=== PATIENT | female | born 1990 | race Caucasian/White ===

== ENCOUNTER 2024-10-12 17:09 | Emergency (ER) | payer BC, SELFPAY ==
--- OUTSIDE RECORDS SUMMARY | 2022-11-05 13:10 | XMS_ITS | Encounter Summary ---
Author Organization [facility] Address [address] [place] [address] Care Team Providers Care Assembler Rubber Footwear Name Role Phone Rodolfo Plunkett MD Primary Care Provider [phone] Encounter Details Date Type Department Care Team (Late st Contact Info) Description 11/05/2022 1:10 PM EDT Hospital Encounter [facility] - [facility] [address] [place] [phone] Social History Tobacco Use Types Packs/Day Years [...] often do you attend chur ch or denominational services? Never 09/24/2023 Do you belong to any clubs o r organizations such as denominational groups, unions, fraternal or athletic groups, or [...] things needed for daily living? Yes 2024 [place] Depression Scale Answer Date Recorded [place] Depression Scale Total 16 08/01/2023 The thought [...] were you homeless or living in a longterm (including now)? Patient unable to answer 2024 [...] declined 08/13/2024 How often do you attend denominational or denominational serv ices? Patient declined 08/13/2024 Do you belong to any clubs o r organizations such as denominational groups, unions, fraternal or athletic groups, or [...] housing, medical care, and heating? Hard 08/13/2024 [facility] [place] of Occupat ional Health - Occupational Stress [...] any time in the past 12 m [facility], were you homeless or living in a longterm (including now)? No 08/13/2024 [facility] Utilities Answer Date Recorded In the past 12 months has [facility] electric, gas, oil, or water company [...] Description 11/03/2024 12:25 PM EDT [facility] [address] [place] [address] 11/03/2024 12:30 PM EDT Appointment [facility] - Ultrasound [address] [place] [address] 12/14/2024 12:55 PM EDT [facility] [address] [place] [address] 12/14/2024 1:00 PM EDT [facility]ment [facility] - Ultrasound [address] [place] [address] documented as of this encounter Procedures Procedure Name Priority Date/Time Associated Diagnosis Comments 15 [place] IO-PERIAPICAL 1ST RADIOGRAPHC IMAGE Routine 11/05/2022 1:15 PM EDT Dental abscess documented in this encounter Results * 15 [place] IO-PERIAPICAL 1ST RADIOGRAPHC IMAGE (11/05/2022 1:15 PM [...] documented as of this encounter Care Teams Assembler Rubber Footwear Relationship Specialty Start Date End Date Rodolfo Plunkett MD [address] [facility] [place] [phone] PCP - General Family Medicine 08/24/21 06/26/24 documented as of this encounter
--- OUTSIDE RECORDS SUMMARY | 2024-01-15 13:36 | XMS_ITS | Encounter Summary ---
Author Organization [facility] Address [address] [place] [address] Care Team Providers Care Doctor Of Osteopathy Name Role Phone Rodolfo Plunkett MD Primary Care Provider [phone] Encounter Details Date Type Department Care Team (Latest Contact Info) Description 01/15/2024 12:36 PM [facility] Hospital Encounter [facility] Imaging Services - [place] [facility] - XRay [address] [facility] [place] [address] Chest congestion; Other chest pain; Fever, unspecified [...] often do you attend chur ch or cheondoism services? Never 09/24/2023 Do you belong to any clubs o r organizations such as christian groups, unions, fraternal or athletic groups, or [...] things needed for daily living? Yes 2024 [place] Depression Scale Answer Date Recorded [place] Depression Scale Total 16 08/01/2023 The thought [...] were you homeless or living in a intermediate (including now)? Patient unable to answer 2024 [...] declined 08/13/2024 How often do you attend christian or cheondoism serv ices? Patient declined 08/13/2024 Do you belong to any clubs o r organizations such as christian groups, unions, fraternal or athletic groups, or [...] housing, medical care, and heating? Hard 08/13/2024 [facility] Occupat ional Health - Occupational Stress [...] were you homeless or living in a intermediate (including now)? No 08/13/2024 [facility] Utilities Answer Date Recorded In the [...] Description 11/03/2024 12:25 PM EDT Office Visit [facility] [address] [place] [address] 11/03/2024 12:30 PM EDT Appointment [facility] - Ultrasound [address] [place] [address] 12/14/2024 12:55 PM EDT Office Visit [facility] [address] [place] [address] 12/14/2024 1:00 PM EDT [facility] - Ultrasound [address] [place] [address] documented as of this encounter Procedures Procedure [...] documented as of this encounter Care Teams Doctor Of Osteopathy Relationship Specialty Start Date End Date Rodolfo Plunkett MD [address] [facility] [place] [phone] PCP - General Family Medicine 08/24/21 06/26/24 documented as of this encounter
[2024-10-12 17:20] VITALS: BP 107/80; PULSE 80; O2SAT 98
[2024-10-12 17:29] VITALS: BP 107/56; PULSE 79; RESP 16; TEMP 36.6; O2SAT 97; BMI 17.4
--- OUTSIDE RECORDS SUMMARY | 2024-10-12 18:25 | XMS_ITS | Clinical Summary ---
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 Merged With [facility] [employer] [facility] - 07/30/2024 12:34 PM EDT Specimen was tested by the Aptima BV and CV/TV Assays which detect or target RNA components associated with bacterial vaginosis (including Lactobacillus species - L. gasseri, L.crispatus, and L. jensenii, Gardnerella vaginalis, and Atopobium vaginae), Nicci species infections (including C. albicans, C. tropicalis, C. parapsilosis, and C. dubliniensis in addition to Nicci glabrata), or Trichomonas vaginalis infections. These assays have not been evaluated for patients under 14 years of age. False negative results may occur due to specimen adequacy, cross-reactivity with other Nicci/Lactobacillus species, competitive interference, or target levels below the assay limit of detection (LoD). A positive result does not necessarily indicate the presence of viable organisms, and it is not intended to be used to determine therapeutic failure or success. [facility] MICROBIOLOGY - GENERAL ORD ERABLES Final Result [facility] - [address] [address], * POCT Urinalysis Automated (07/29/2024 2:33 PM EDT) Pathologist [facility] Glucose Urine Automated, POC Negative Negative, 500 mg/dL mg/dL Ketones Urine Automated, POC Negative Negative, 0-Trace Specific [place] Urine Automated, POC 1.020 1.010, 1.015, 1.020, 1.025 Blood, Urine, POC Negative Negative Urine pH, POC 7.5 5.0, 5.5, 6.0, 6.5, 7.0, 7.5, 8.0 Protein Urine Automated, POC Negative Negative Leukocytes, Urine, POC Negative Negative Nitrite, Urine, POC Negative Negative Source Clean Catch [employer]-Stream Lot # [id number] Lot Expiration Date Urine 07/29/2024 2:33 PM EDT [facility] POINT OF CARE TEST ORDERABLES Final Result * HIV Ag/Ab Progressive - Once (07/31/2023 12:07 PM EDT) [facility] HIV Antigen/Antibody Nonreactive Nonreactive 08/01/2023 7:21 AM EDT [facility] Comment: HIV-1 antigen and HIV-1/HIV-2 antibodies were not detected. There is no laboratory evidence of an HIV infection. PLEASE NOTE: This information has been disclosed to you from records whose confidentiality may be protected by state law. If your state requires such protection, then the state law prohibits you from making any further disclosure of the information without the specific written consent of the person to whom it pertains, or as otherwise permitted by law. A general authorization for the release of medical or other information is NOT sufficient for this purpose. The performance of this assay has not been clinically validated in patients less than 2 years old. Blood Venous blood specimen / Unknown Venipuncture / Unknown 07/31/2023 12:07 PM EDT 07/31/2023 12:24 PM EDT Denise Smith MD LAB BLOOD ORDERABLES Fin al Result Performing Organization Address [facility] Co de Phone Number [facility] [address] [place] [id number] * Hepatitis C Antibody w/rfl Quant RNA, PCR w/rfl Genotype - STAT (07/28/2023 8:26 PM EDT) Pathologist [facility] Hepatitis C Ab Nonreactive Nonreactive 07/30/2023 5:03 AM EDT [facility] Comment: Hepatitis C Antibody was not detected. Patient is presumed not to be infected with Hepatitis C Virus. Blood Venous blood specimen / Unknown Venipuncture / Unknown 07/28/2023 8:26 PM EDT 07/28/2023 8:41 PM EDT Rafaela Bergman DO LAB BLOOD ORDERABLES Final R esult Performing Organization Address [facility] de Phone Number [facility] [address] [place] [phone] * CIGAR BANDER HAND CYTOLOGY REPORT (06/08/2015 9:05 AM EDT) Pathologist [facility] [employer] P8 Developer Cytology Report Clinical Information Submitted As: Thin prep vial with preservative LMP Date: 02/12/2015 CIGAR BANDER HAND History/Treatment/S ymptoms: No prior abnormal findings [id number] Testing Requested Pap, Screen, with HPV Specimen Source Cervix/endocervix Specimen Adequacy Satisfactory for evaluation. Transformation zone component absent. Diagnosis NEGATIVE for Intraepithelial Lesion or Malignancy. Fungal organisms morphologically consistent with Nicci. Geology Teacher: [facility] SHANAE Ambrose(ASCP) (Electronic Signature), Verified: 06/15/2015 Note In the absence of technical problems, liquid-based specimens are routinely analyzed with the automated assistance of the ThinPrep Cold Rolling Coordinator System followed by microscopic evaluation by a Geology Teacher and/or Pathologist. The pap test is only a screening tool for the detection of cervical cancer and its precursors. This test is subject to false negatives and false positives, therefore periodic follow-up testing is recommended. [facility] 06/08/2015 9:05 AM EDT us Georgi Hackett MD LAB HISTORICAL ORDE RS Final Result [facility] [address] [place] [address], [place] from Last 3 Months or Most Recently Relevant to Health Maintenance Additional Health Concerns Active Problems Noted Date Diagnosed Date Outpatient Care Plan Problem 08/13/2024 Insurance [facility] MED[facility]ID [employer] MED[employer]ID [facility] [employer] Advance Directives * Full Code (Latest Code Status on File) Date Activated Date Inactivated Comments 04/27/2024 10:31 PM 04/29/2024 2:16 PM * Full Code Date Activated Date Inactivated Comments 07/31/2023 11:46 AM 08/01/2023 1:36 PM * Full Code Date Activated Date Inactivated Comments 10/25/2022 3:24 PM 11/09/2022 5:42 PM * Full Code Date Activated Date Inactivated Comments 04/24/2020 6:10 PM 04/27/2020 5:03 PM * Full Code Date Activated Date Inactivated Comments 04/22/2020 2:28 PM 04/24/2020 5:26 PM Care Teams Therapist Speech Relationship Specialty Start Date End Date Unknown PCP - General 07/29/24
--- OUTSIDE RECORDS SUMMARY | 2024-10-12 18:25 | XMS_ITS | Clinical Summary ---
Author Organization [facility] Address [address] [place] [address] Care Team Providers Care Dry House Operator Name Role Phone No Pcp, Family Dr Primary Care Provider Unavaila ble Allergies Active Allergy Reactions Criticality Noted Date Comments Bee Venom Protein (Honey Bee) Hives Medium 12/03/2018 Penicillin G Anaphylaxis High 11/10/2018 Penicillins Anaphylaxis High 12/11/2018 Pollen Extracts Other (See Comments) Low 12/03/2018 Nasal congestion Medications gabapentin (Neurontin) 100 MG capsule Take 100 mg by mouth at bedtime. Active FLUoxetine (PROzac) 20 MG capsule Take 60 mg by mouth daily. Active ziprasidone (Geodon) 20 MG capsule Take 20 mg by mouth twice a day with breakfast and dinner. Active busPIRone (Buspar) 15 MG tablet Take 15 mg by mouth twice a day. Active traZODone (DesyreL) 150 MG tablet Take 150 mg by mouth at bedtime. Active benztropine (Cogentin) 0.5 MG tablet Take 0.5 mg by mouth twice a day. Active doxycycline 100 MG capsule Take 1 capsule (100 mg total) by mouth twice a day. 20 capsule 2 Active naproxen (Naprosyn) 500 MG tablet Take 1 tablet (500 mg total) by mouth twice a day with breakfast and dinner. 10 tablet 3 Active dicyclomine (BentyL) 20 mg tablet Take 1 tablet (20 mg total) by mouth twice a day. 20 tablet 3 Active famotidine (Pepcid) 20 MG tablet Take 1 tablet (20 mg total) by mouth twice a day. 30 tablet 3 Active albuteroL 90 mcg/actuation inhaler Inhale 2 puffs every 4 hours as needed for wheezing. 1 each 4 Active acetaminophen (TylenoL) 500 MG tablet Take 1 tablet (500 mg total) by mouth every 6 hours as needed for mild pain, moderate pain or fever (>/= 38.3 C or 101 F). 30 tablet 4 Active Social History Tobacco Use Types Packs/Day Years Used Date Smoking Tobacco: Every Day Cigarettes Passive Smoke Exposure: Never Smokeless Tobacco: Never Tobacco Cessation:Ready to Q uit: Not Asked; Counseling Given: Not Answered Alcohol Use Standard Drinks/Week Comments Yes 0 (1 standard drink = 0.6 oz pure alcohol) as many as I can get my hands on AUDIT-C Answer Date Recorded Frequency of Alcohol Consumption Never 03/10/2020 Average Number of Drinks Not on file 021 Frequency of Binge Drinking Not on file 02/19 Comments Unknown Sex and Gender Information Value Date Recorded Sex Assigned at Not on file Legal Sex Female 5:13 PM EDT Gender Identity Not on file Sexual Orientation Not on file Last Filed Vital Signs Vital Sign Reading Time Taken Comments Blood Pressure 110/77 03/30/2023 3:54 PM EST Pulse 85 03/30/2023 3:54 PM EST Temperature 36.6 C (97.8 F) 03/30/2023 3:54 PM EST Respiratory Rate 20 03/30/2023 3:54 PM EST Oxygen Saturation 98% 03/30/2023 3:54 PM EST Inhaled Oxygen Concentration - - Weight 54.4 kg (120 lb) 03/30/2023 3:54 PM EST P t stated Height 170.2 cm (5' 7 ) 03/30/2023 3:54 PM EST Body Mass Index 18.79 03/30/2023 3:54 PM EST Plan of Treatment Health Maintenance Due Date Last Done Comments Pap Smear 1990 Annual Depression Screening 2002 Pneumococcal Vaccine (0-64 y ears) (2 of 2 - PCV) 11/11/2016 11/12/2015, 11/18/2009 Influenza Vaccine (#1) 2024 11/12/2015 Tetanus/Pertussis Vaccines ( 8 - Td or Tdap) 04/27/2034 04/27/2024, 09/27/2022, 11/14/2015, Additional history exists HIV Screening 15-65 Completed 07/11/2022, 2 Procedures Procedure Name Priority Date/Time Associated Diagnosis Comments HIV 1/2 ANTIGEN/ANTIBODY,FOU RTH GENERATION W/RFL STAT 07/11/2022 11:29 PM EDT from Last 3 Months or Most Recently Relevant to Health Maintenance Results * HIV 1/2 Antigen/Antibody,Fourth Generation W/Rfl (07/11/2022 11:29 PM EDT) HIV AG/AB, 4TH GEN Nonreactive Nonreactive 07/16/2022 2:02 PM EDT [facility] Comment: HIV-1 antigen and HIV-1/HIV-2 antibodies were not detected. There is no laboratory evidence of HIV infection. PLEASE NOTE This information has been disclosed to you [...] in patients less than 2 years old. For additional information, please refer to http://education.[employer]/faq/CMS193 Blood Blood specimen / Unknown Line / Unknown 07/11/2022 11:29 PM EDT 07/11/2022 11:29 PM EDT Narrative [facility] - 07/16/2022 2:02 PM EDT Performing Organization Information: Site ID: [id number] Name: [facility] [employer] [place] Address: [address], [place] Director: Antonio Tiwari MD PhD us Maris [facility] LAB BLOOD ORDERABLES F inal Result [employer] [place] from Last 3 Months or Most Recently Relevant to Health Maintenance Insurance LITZY LAGOS [id number] [employer] MEDICA[employer] Care Teams Dry House Operator Relationship Specialty Start Date End Date No Pcp, Family, [address] (Not a Real Address) [place] [id number] PCP - General 09/28/21
--- OUTSIDE RECORDS SUMMARY | 2024-10-12 18:25 | XMS_ITS | Continuity of Care Document ---
Author Organization [facility] Address [address] [place] [address] Phone [phone] Care Team Providers Care Agricultural Science Professor Name Role Phone NIKKI EVANS D.O. Care Team Information Strap Cutting Machine Operator Unavailable No PCP, No Referring Primary Care Physician Unav ailable Problems Active Problems Provider Date Anemia Vikas Gordon M.D. Onset: 06/30/2019 Anxiety Vikas Gordon M.D. Onset: 06/30/2019 Asthma Vikas Gordon M.D. Onset: 06/30/2019 Depressive disorder Vikas Gordon M.D. 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 ETOH Use Currently consumes alcohol Tobacco Use Start: Unknown Patient is a cur rent smoker, smokes every day Recreational Drug Use Never Used Drugs Allergies and adverse reactions Active Allergies Criticality Reaction Severity Comments Date Penicillin Unable to assess criticality Hives, swelling 06/30/2019 Bee Sting Unable to assess criticality Hives 06/30/2019 Seasonal Unable to assess criticality Nasal congestion, itchy eyes 06/30/2019 Medications Active Medications SIG Qnty Indications Ordering Provider Date Mobic7.5mg Tablets one tablet by mouth with food one time a day 30tabs Vikas Gordon M.D. 06/30/2019 Tizanidine HCL2mg Tablets 1 tablet by mouth up to 3 times a day as needed for muscle spasm 30tabs Vikas Gordon M.D. 06/30/2019 Hydroxyzine [id number] Capsules Take 1 Capsule (25 MG Total) By Mouth 3 (Three) Times A Day Unknown [id number] Capsules Take 1 Capsule By Mouth Three Times A Day Unknown Functional Status Functional Condition Comment Date Status None Active
--- OUTSIDE RECORDS SUMMARY | 2024-10-12 18:25 | XMS_ITS ---
Author Organization [employer] Address [address] [place] [address] Care Team Providers Care Junior Technical Writer Name Role Phone Unknown Primary Care Provider Unavailabl e Social Work Status:Enrolled (Active) Start date:08/13/2024 Enrollment date:08/13/2024 Enrollment reason:Identified through [employer] [facility] referral Related social drivers of health:Food Insecurity, Transportation Needs Overview Assists patients with obtaining needed community resources, services and equipment. Advocates for the patient's self determination and appropriate levels of care. Case Team Name Relationship Phone Sharmin Watson(Responsible Staff) Continued Care and Services Coordination
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
[2024-10-12 18:29] VITALS: BP 119/64; PULSE 71; RESP 20; TEMP 36.9; O2SAT 98
--- NOTE | 2024-10-12 18:30 | PC.NURSE ---
Patient awaiting ED provider sign up and evaluation. Patient reports that they go to [facility] in [place], [place]. Patient reports that she's 6 months , and takes Subutex 8mg. However, patient hasn't taken her Subutex for 1 week and is in ED for withdrawal today. Patient is in behavioral control at this time. Spoke with Dr. Valles regarding receiving Subutex dosing now. Labs ordered and being collected at this time. Provider wishes to evaluate the patient & obtain labs prior to medicating. Patient aware of plan. Care ongoing by this RN. Robles (air bag builder) at bedside collecting labs at this time.
[2024-10-12 18:47] LABS: Hematocrit 30.8 % (37.0-47.0); Hemoglobin 10.5 g/dl (12.0-16.0); Imm Gran Abs Auto 0.05 X10*3/uL (0.00-0.03); Imm Gran Pct Auto 0.6 % (0.0-0.4); Lymphocytes Absolute Auto 2.8 X10*3/uL (1.2-4.9); MANUAL DIFF FLAG NO; Mean Corpuscular HGB Conc 34.1 g/dl (31.0-35.0); Mean Corpuscular Hemoglobin 28.8 pg (27.0-33.0); Mean Corpuscular Volume 84.4 fL (80.0-98.0); NRBC Abs Auto 0.000 X10*3/uL (0.0-0.012); NRBC Pct Auto 0.0 /100WBC (0.0-0.2); Platelet Count 291 X10*3/uL (160-400); Red Blood Count 3.65 X10*6/uL (4.20-5.50); White Blood Count 9.0 X10*3/uL (4.8-10.8)
[2024-10-12 19:08] LABS: Alanine Aminotransferase 7 U/L (0-31); Albumin Level 3.7 g/dL (3.5-5.0); Alkaline Phosphatase 77 U/L (39-117); Anion Gap 12 (12-20); Aspartate Amino Transferase 13 U/L (5-31); Blood Urea Nitrogen 9 mg/dL (9-16); Calcium 8.4 mg/dL (8.4-10.2); Carbon Dioxide 21 mmol/L (22-29); Chloride 107 mmol/L (96-108); Creatinine Clr Calc Pharmacy 109.1; Estimated Glomerular Filt Rate > 60; Lipase 12 U/L (8-78); Magnesium 2.2 mg/dL (1.6-2.6); Potassium 4.0 mmol/L (3.3-5.1); Sodium 136 mmol/L (135-145); Total Protein 6.6 g/dL (6.5-8.0)
--- NOTE | 2024-10-12 19:40 | PC.NURSE ---
pt requesting Tylenol at this time and questioning if her labs have returned, this RN informed the pt that her lab results have returned and pending a provider to look over them, pt adamant on receiving her Subutex if she cannot her Tylenol, pt educated that we must wait for provider to see her in order to receive medication
--- NOTE | 2024-10-12 20:10 | PC.NURSE ---
at this time this RN reiterated to the pt that we are waiting for a provider to go over her lab work in order to place new orders, pt appeared more relaxed and requested gingerale, no apparent distress noted at this time
--- NOTE | 2024-10-12 21:11 | ED_ITS ---
HPI - General Adult General Chief complaint: General Medical Stated complaint: opiate w/d sx x1 wk 6 months Time Seen by Provider: 10/12/24 21:11 Source: patient Mode of arrival: ambulatory Limitations: no limitations History of Present Illness ED Provider: Dr. Lisa Harrison HPI narrative: 34-year-old female currently approximately 6 months with a history of polysubstance use, opiate use disorder on Subutex presenting with opiate withdrawal symptoms. Admits she has not had any Subutex in the last 7 days. Usually gets treated in [place], [place]. Is up here with her partner who has a job in construction in [place] right now. Has also used morphine, last dose of that was several weeks ago though. She denies other opiate use in the meantime. She has used cocaine and marijuana. Admits that she had a miscarriage at 5 months due to drug use and ?STDs?. She describes her withdrawal symptoms as fatigue, generalized body pains, diarrhea, anxiety and depression. Denies vaginal bleeding or discharge, dysuria or hematuria, nausea or vomiting. Describes normal movement. Related Data Allergies Allergy/AdvReac Type Severity Reaction Status Date / Time bee pollen (bee stings) Allergy Unknown Verified 10/12/24 17:36 Penicillins (PCN) Allergy Unknown Verified 10/12/24 17:36 Review of Systems 2 Review of Systems: As per HPI, full review of systems performed and negative but for the above mentioned pertinent positives and negatives. [facility] Social History Social History Advance Directives: No Advance Directives Information Provided: Yes Physical Exam ED Exam Exam: GENERAL: Unkempt, no acute distress. SKIN: Normal skin color for ethnicity, warm, dry, no rashes noted. HEENT: Normocephalic, atraumatic, no stridor, posterior oropharynx nonerythematous, dentition intact, EOMI. NECK: Soft, supple, full ROM, midline structures nontender, no step-offs, no deformities, no lymphadenopathy. CHEST: Heart regular rate and rhythm, no murmurs, symmetric chest rise and fall. PULMONARY: Clear to auscultation bilaterally, no labored breathing, no wheezes/rhales/ rhonchi. ABDOMINAL: Soft, gravid, nontender, positive bowel sounds in all quadrants. : Deferred. MUSCULOSKELETAL: Normal tone, full range of motion, no deformities, no peripheral edema. NEURO: Alert and oriented x3, CN II through XII intact, equal strength and sensation bilateral upper and lower extremities, no focal neurologic deficits. PSYCHIATRIC: Flat affect, poor eye contact, withdrawn Vital Signs: Vital Signs - 24 hr 10/12/24 17:29 10/12/24 18:29 10/12/24 22:03 Temperature 98 F 98.4 F 97.9 F Pulse Rate 79 71 66 Respiratory Rate 16 20 20 Blood Pressure 107/56 L 119/64 114/54 L Pulse Oximetry 97 98 100 Oxygen Delivery Method Room Air Room Air BMI result Body Mass Index 17.4 Medications Administered Discontinued Medications Generic Name Dose Route Start Last Admin Trade Name Freq PRN Reason Stop Dose Admin Acetaminophen 975 mg 10/12/24 21:49 10/12/24 21:58 Acetaminophen 325 Mg Tablet PO 10/12/24 21:50 975 mg ONCE ONE Administration Buprenorphine HCl 4 mg 10/12/24 22:31 10/12/24 22:59 Buprenorphine Hcl 2 Mg Tab.Subl SUBLINGUAL 10/12/24 22:32 4 mg ONCE ONE Administration Naloxone HCl 8 mg 10/12/24 22:32 10/12/24 22:47 Naloxone Hcl Nasal Take Home 4 Mg [place] NOSTRILALT 10/12/24 22:33 Not Given ONCE ONE Medical Decision Making Medical Decision Making MDM Narrative: 34-year-old female currently 6 months presenting with request for medication assisted therapy for opioid use disorder. Differential diagnosis includes: Opiate dependence, polysubstance use, complications of , viral syndrome, infectious process, housing and security, trafficking, among others. Bedside ultrasound shows single IUP with heart tones in the 140s, normal movement. I have provided her with a dose of Subutex here in the emergency department. Discussed importance of follow-up at [facility] to have continued dosing. Patient traveled from [facility] to [place] with her partner who is working here. She has no care in the area. I have discussed the case with OBGYN at [place] at [facility] and they will arrange follow-up for care visit. Differential Diagnosis Differential Diagnoses: The differential diagnosis associated with the presentation includes (as above) Admission/Observation Consideration of admission/observation: Escalation of care including admission/observation considered Consult Healthcare Provider Management of the patient was discussed with: Weed Inspector (WANDA at [place] (high risk )) Lab Data MDM Lab Attestation statement: I reviewed the patient's lab results. 10/12/24 18:42 10/12/24 18:42 Labs: Lab Results 10/12/24 10/12/24 Range/Units 18:42 22:03 WBC 9.0 (4.8-10.8) X10*3/uL RBC 3.65 L (4.20-5.50) X10*6/uL Hgb 10.5 L (12.0-16.0) g/dl Hct 30.8 L (37.0-47.0) % MCV 84.4 (80.0-98.0) fL MCH 28.8 (27.0-33.0) pg MCHC 34.1 (31.0-35.0) g/dl RDW 14.6 (11.0-16.0) % Plt Count 291 (160-400) X10*3/uL MPV 9.1 L (9.4-12.3) fL Immature Gran % (Auto) 0.6 H (0.0-0.4) % Neut % (Auto) 62.5 (45-73) % Lymph % (Auto) 30.9 (20-40) % [place] % (Auto) 4.4 (2-11) % Eos % (Auto) 1.0 (0-4) % Baso % (Auto) 0.6 (0-2) % Lymph # (Auto) 2.8 (1.2-4.9) X10*3/uL [place] # (Auto) 0.4 (0.1-1.2) X10*3/uL Eos # (Auto) 0.1 (0.0-0.4) X10*3/uL Baso # (Auto) 0.1 (0.0-0.2) X10*3/uL Abs Immat Gran (auto) 0.05 H (0.00-0.03) X10*3/uL Absolute Neuts (auto) 5.7 (2.0-8.3) x10*3/uL Absolute Nucleated RBC 0.000 (0.0-0.012) X10*3/uL Nucleated RBC % (auto) 0.0 (0.0-0.2) /100WBC Sodium 136 (135-145) mmol/L Potassium 4.0 (3.3-5.1) mmol/L Chloride 107 (96-108) mmol/L Carbon Dioxide 21 L (22-29) mmol/L Anion Gap 12 (12-20) BUN 9 (9-16) mg/dL Creatinine 0.65 (0.5-1.4) mg/dL Estim Creat Clear Calc 109.1 Estimated GFR > 60 Random Glucose 76 (60-115) mg/dL Calcium 8.4 (8.4-10.2) mg/dL Magnesium 2.2 (1.6-2.6) mg/dL Total Bilirubin 0.3 (0.0-1.0) mg/dL Direct Bilirubin 0.1 (0.0-0.5) mg/dL AST 13 (5-31) U/L ALT 7 (0-31) U/L Alkaline Phosphatase 77 (39-117) U/L Total Protein 6.6 (6.5-8.0) g/dL Albumin 3.7 (3.5-5.0) g/dL Lipase 12 (8-78) U/L Beta HCG, Quant 48813 mIU/mL Urine Opiates Screen Not Detected (Not Detect) Ur Buprenorphine Scrn Not Detected (Not Detect) ng/mL Ur Oxycodone Screen Not Detected (Not Detect) ng/mL Urine Methadone Screen Not Detected (Not Detect) ng/mL Urine Fentanyl Screen Not Detected (Not Detect) Ur Barbiturates Screen Not Detected (Not Detect) Ur Phencyclidine Scrn Not Detected (Not Detect) Ur Amphetamines Screen Not Detected (Not Detect) U Benzodiazepines Scrn Not Detected (Not Detect) Urine Cocaine Screen POSITIVE H (Not Detect) U Marijuana (THC) Screen POSITIVE H (Not Detect) Independent Interpretation I performed an independent interpretation of an: Ultrasound Interpretation: EMERGENCY ULTRASOUND INTERPRETATION-Limited Uterus US The study reveals:? Single IUP, normal movement, heart tones 141bpm, adequate amniotic fluid Impression: IUP Indication: with polysubstance use Quant HCG:?049 Performed by: Dr. Lisa Harrison, Date:Time: CPT: 63286 ; Reference Codes? 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 You may have been dosed with medication for opiate use disorder (MOUD) in the form of suboxone or methadone. You may experience feeling some withdrawal symptoms and this is normal. The? dose in the Emergency Department is a starting dose and meant to be titrated up once you follow up with a clinic. Please do not feel discouraged, it is a process. The nurse has reviewed with you where to follow up and what information to bring with you, to continue treatment. You also may have been given naloxone (narcan) to take home with you. This medication is used to potentially treat opiate overdose. If you decide you want to stop or cut down on how much you?re using, you can call or walk into our outpatient Addiction Treatment office: [facility] (M-F 9am-5p) [address] [place] [address], [address] [phone] You may have been provided with safer injection?items, please take time to take care of YOU and your health. Use new supplies whenever possible to lessen the chances of infections and other illnesses.? If you need more supplies, please go [facility],? [address] [place] [address] [place] you can call or text to coordinate delivery of safer supplies. You were also provided a list of several treatment providers in the area.? If you experience any worsening symptoms you cannot control please return to the ED or call 911. Please follow up at your next appointment. Things to look out for are fevers, chest pain, shortness of breath, severe pain, dizziness, fainting or any other concerns. Please follow up with [facility] in [place], [place] to have additional care. The OBGYN will contact you via cell phone within the next 48 hours for an appointment. Referrals: [facility] [Outside, Obstetrics] - 2 days Print Language: Brazilian
--- NOTE | 2024-10-12 21:58 | PC.NURSE ---
pt medicated per MAR, requesting phone to call friend
[2024-10-12 22:03] VITALS: BP 114/54; PULSE 66; RESP 20; TEMP 36.6; O2SAT 100
--- NOTE | 2024-10-12 22:10 | PC.NURSE ---
pt given portable hospital phone at this time
[2024-10-12 22:20] LABS: Cannabinoid Screen Urine POSITIVE (Not Detect)
--- NOTE | 2024-10-12 22:47 | PC.NURSE ---
pt refused Naloxone stated I have a bunch of these at the house
[2024-10-12 23:42] VITALS: BP 118/56; PULSE 72; RESP 18; TEMP 36.7; O2SAT 98
--- NOTE | 2024-10-12 23:42 | ED.GENADULT ---
HPI - General Adult General Chief complaint: General Medical Stated complaint: opiate w/d sx x1 wk 6 months Time Seen by Provider: 10/12/24 21:11 Source: patient Mode of arrival: ambulatory Limitations: no limitations Related Data Allergies Allergy/AdvReac Type Severity Reaction Status Date / Time bee pollen (bee stings) Allergy Unknown Verified 10/12/24 17:36 Penicillins (PCN) Allergy Unknown Verified 10/12/24 17:36 PMF Social History Social History Advance Directives: No Advance Directives Information Provided: Yes Physical Exam ED Vital Signs: Vital Signs - 24 hr 10/12/24 17:29 10/12/24 18:29 10/12/24 22:03 Temperature 98 F 98.4 F 97.9 F Pulse Rate 79 71 66 Respiratory Rate 16 20 20 Blood Pressure 107/56 L 119/64 114/54 L Pulse Oximetry 97 98 100 Oxygen Delivery Method Room Air Room Air BMI result Body Mass Index 17.4 Medications Administered Discontinued Medications Generic Name Dose Route Start Last Admin Trade Name Freq PRN Reason Stop Dose Admin Acetaminophen 975 mg 10/12/24 21:49 10/12/24 21:58 Acetaminophen 325 Mg Tablet PO 10/12/24 21:50 975 mg ONCE ONE Administration Buprenorphine HCl 4 mg 10/12/24 22:31 10/12/24 22:59 Buprenorphine Hcl 2 Mg Tab.Subl SUBLINGUAL 10/12/24 22:32 4 mg ONCE ONE Administration Naloxone HCl 8 mg 10/12/24 22:32 10/12/24 22:47 Naloxone Hcl Nasal Take Home 4 Mg [place] NOSTRILALT 10/12/24 22:33 Not Given ONCE ONE Medical Decision Making Lab Data 10/12/24 18:42 10/12/24 18:42 Labs: Lab Results 10/12/24 10/12/24 Range/Units 18:42 22:03 WBC 9.0 (4.8-10.8) X10*3/uL RBC 3.65 L (4.20-5.50) X10*6/uL Hgb 10.5 L (12.0-16.0) g/dl Hct 30.8 L (37.0-47.0) % MCV 84.4 (80.0-98.0) fL MCH 28.8 (27.0-33.0) pg MCHC 34.1 (31.0-35.0) g/dl RDW 14.6 (11.0-16.0) % Plt Count 291 (160-400) X10*3/uL MPV 9.1 L (9.4-12.3) fL Immature Gran % (Auto) 0.6 H (0.0-0.4) % Neut % (Auto) 62.5 (45-73) % Lymph % (Auto) 30.9 (20-40) % [place] % (Auto) 4.4 (2-11) % Eos % (Auto) 1.0 (0-4) % Baso % (Auto) 0.6 (0-2) % Lymph # (Auto) 2.8 (1.2-4.9) X10*3/uL [place] # (Auto) 0.4 (0.1-1.2) X10*3/uL Eos # (Auto) 0.1 (0.0-0.4) X10*3/uL Baso # (Auto) 0.1 (0.0-0.2) X10*3/uL Abs Immat Gran (auto) 0.05 H (0.00-0.03) X10*3/uL Absolute Neuts (auto) 5.7 (2.0-8.3) x10*3/uL Absolute Nucleated RBC 0.000 (0.0-0.012) X10*3/uL Nucleated RBC % (auto) 0.0 (0.0-0.2) /100WBC Sodium 136 (135-145) mmol/L Potassium 4.0 (3.3-5.1) mmol/L Chloride 107 (96-108) mmol/L Carbon Dioxide 21 L (22-29) mmol/L Anion Gap 12 (12-20) BUN 9 (9-16) mg/dL Creatinine 0.65 (0.5-1.4) mg/dL Estim Creat Clear Calc 109.1 Estimated GFR > 60 Random Glucose 76 (60-115) mg/dL Calcium 8.4 (8.4-10.2) mg/dL Magnesium 2.2 (1.6-2.6) mg/dL Total Bilirubin 0.3 (0.0-1.0) mg/dL Direct Bilirubin 0.1 (0.0-0.5) mg/dL AST 13 (5-31) U/L ALT 7 (0-31) U/L Alkaline Phosphatase 77 (39-117) U/L Total Protein 6.6 (6.5-8.0) g/dL Albumin 3.7 (3.5-5.0) g/dL Lipase 12 (8-78) U/L Beta HCG, Quant 98579 mIU/mL Urine Opiates Screen Not Detected (Not Detect) Ur Buprenorphine Scrn Not Detected (Not Detect) ng/mL Ur Oxycodone Screen Not Detected (Not Detect) ng/mL Urine Methadone Screen Not Detected (Not Detect) ng/mL Urine Fentanyl Screen Not Detected (Not Detect) Ur Barbiturates Screen Not Detected (Not Detect) Ur Phencyclidine Scrn Not Detected (Not Detect) Ur Amphetamines Screen Not Detected (Not Detect) U Benzodiazepines Scrn Not Detected (Not Detect) Urine Cocaine Screen POSITIVE H (Not Detect) U Marijuana (THC) Screen POSITIVE H (Not Detect) Discharge Plan Discharge Clinical Impression: Drug dependence 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 You may have been dosed with medication for opiate use disorder (MOUD) in the form of suboxone or methadone. You may experience feeling some withdrawal symptoms and this is normal. The? dose in the Emergency Department is a starting dose and meant to be titrated up once you follow up with a clinic. Please do not feel discouraged, it is a process. The nurse has reviewed with you where to follow up and what information to bring with you, to continue treatment. You also may have been given naloxone (narcan) to take home with you. This medication is used to potentially treat opiate overdose. If you decide you want to stop or cut down on how much you?re using, you can call or walk into our outpatient Addiction Treatment office: [facility] (M-F 9am-5p) [address] [place] [address], [address] [phone] You may have been provided with safer injection?items, please take time to take care of YOU and your health. Use new supplies whenever possible to lessen the chances of infections and other illnesses.? If you need more supplies, please go [facility],? [address] [place], [place] you can call or text to coordinate delivery of safer supplies. You were also provided a list of several treatment providers in the area.? If you experience any worsening symptoms you cannot control please return to the ED or call 911. Please follow up at your next appointment. Things to look out for are fevers, chest pain, shortness of breath, severe pain, dizziness, fainting or any other concerns. Please follow up with [facility] in [place], [place] to have additional care. The OBGYN will contact you via cell phone within the next 48 hours for an appointment. Referrals: [facility] [Outside, Obstetrics] - 2 days Print Language: American
== END 2024-10-12 23:43 | disposition home or self-care (01) ==
PROVIDERS: Emergency Provider Emergency Medicine
DX: O99.321 Drug use complicating pregnancy, first trimester (principal); Z3A.01 Less than 8 weeks gestation of pregnancy; R10.2 Pelvic and perineal pain; Z51.81 Encounter for therapeutic drug level monitoring; Z79.899 Other long term (current) drug therapy
CPT/HCPCS: 36415; 80053; 80307; 82248; 83690; 83735; 84702; 85025; 99284; J0571

== ENCOUNTER 2024-10-18 17:13 | Emergency (ER) | payer BC, SELFPAY ==
--- OUTSIDE RECORDS SUMMARY | 2022-11-05 13:10 | XMS_ITS | Encounter Summary ---
Author Organization [facility] Address [address] [place] [address] Care Team Providers Care Strapper And Buffer Name Role Phone Rodolfo Plunkett MD Primary Care Provider [phone] Encounter Details Date Type Department Care Team (Late st Contact Info) Description 11/05/2022 1:10 PM EDT Hospital Encounter [facility] [address] [place] [id number] Social History Tobacco Use Types Packs/Day Years Used Date Smoking Tobacco: Some Days Cigarettes Passive Smoke Exposure: Current Smokeless Tobacco: Never Alcohol Use Standard Drinks/Week Comments Never 0 (1 standard drink = 0.6 oz pur e alcohol) Social Connection and Isolation Panel Answer Date Recorded In a typical week, how many times do you talk on the phone with family, friends, or neighbors? More than three times a week 09/24/2023 How often do you get togethe r with friends or relatives? Once a week 09/24/2023 How often do you attend chur ch or faith services? Never 09/24/2023 Do you belong to any clubs o r organizations such as congregation groups, unions, fraternal or athletic groups, or school groups? Yes 09/24/2023 How often do you attend meet ings of the clubs or organizations you belong to? More than 4 times per year 09/24/2023 Are you , , di vorced, , never , or living with a partner? Never 09/24/2023 PHQ-2 Answer Date Recorded PHQ-2 Score 0 08/13/2024 PRAPARE - Transportation Answer Date Re corded In the past 12 months, has l ack of transportation kept you from medical appointments or from getting medications? Patient unable to answer 2024 In the past 12 months, has l ack of transportation kept you from meetings, work, or from getting things needed for daily living? Yes 2024 [place] Depression Scale Answer Date Recorded [place] Depression Scale Total 16 08/01/2023 The thought of harming myself has occurred to me . Sometimes 08/01/2023 Housing Stability Vital Sign Answer Will e Recorded In the last 12 months, was t here a time when you were not able to pay the mortgage or rent on time? Yes 2024 In the past 12 months, how m any times have you moved where you were living? 3 2024 At any time in the past 12 m ont, were you homeless or living in a prison (including now)? Patient unable to answer 2024 Humiliation, Afraid, Rape, and Kick questionnair e Answer Date Recorded Within the last year, have y ou been afraid of your partner or ex-partner? No 08/13/2024 Within the last year, have y ou been humiliated or emotionally abused in other ways by your partner or ex-partner? No Within the last year, have y ou been kicked, hit, slapped, or otherwise physically hurt by your partner or ex-partner? No 08/13/2024 Within the last year, have y ou been raped or forced to have any kind of sexual activity by your partner or ex-partner? No 08/13/2024 Social Connection and Isolation Panel Answer Date Recorded In a typical week, how many times do you talk on the phone with family, friends, or neighbors? Patient declined 08/13/2024 How often do you get togethe r with friends or relatives? Patient declined 08/13/2024 How often do you attend congregation or faith serv ices? Patient declined 08/13/2024 Do you belong to any clubs o r organizations such as congregation groups, unions, fraternal or athletic groups, or school groups? Patient declined 08/13/2024 How often do you attend meet ings of the clubs or organizations you belong to? Patient declined 08/13/2024 Are you , , di vorced, , never , or living with a partner? Patient declined 08/13/2024 AUDIT-C Answer Date Recorded Q1: How often do you have a drink containing alcohol? Never 08/13/2024 Q2: How many drinks containi ng alcohol do you have on a typical day when you are drinking? Patient does not drink Q3: How often do you have si x or more drinks on one occasion? Never 08/13/2024 Overall Financial Resource Strain (CARDIA) Answe r Date Recorded How hard is it for you to pa y for the very basics like food, housing, medical care, and heating? Hard 08/13/2024 [facility] [place] of Occupat ional Health - Occupational Stress Questionnaire Answer Date Recorded Do you feel stress - tense, restless, nervous, or anxious, or unable to sleep at night because your mind is troubled all the time - these days? To some extent 08/13/2024 Exercise Vital Sign Answer Date Recorde d On average, how many days pe r week do you engage in moderate to strenuous exercise (like a brisk walk)? 0 days 08/13/2024 On average, how many minutes do you engage in exercise at this level? 0 min 08/13/2024 Hunger Vital Sign Answer Date Recorded Within the past 12 months, y ou worried that your food would run out before you got the money to buy more. Sometimes true Within the past 12 months, t he food you bought just didn't last and you didn't have money to get more. Often true PRAPARE - Transportation Answer Date Re corded In the past 12 months, has l ack of transportation kept you from medical appointments or from getting medications? Yes 07/20 In the past 12 months, has l ack of transportation kept you from meetings, work, or from getting things needed for daily living? Yes 08/13/2024 Housing Stability Vital Sign Answer Will e Recorded In the last 12 months, was t here a time when you were not able to pay the mortgage or rent on time? No 08/13/2024 Number of Times Moved in the Last Year Not on fi le 08/13/2024 At any time in the past 12 m [facility], were you homeless or living in a prison (including now)? No 08/13/2024 [facility] Utilities Answer Date Recorded In the past 12 months has [facility] electric, gas, oil, or water company threatened to shut off services in your home? No 08/13/2024 Digital Health Literacy Answer Date Rec orded Do you use applications/prog george (such as Zoom) on your cell phone, computer, or another electronic device (without asking for help from someone else)? Yes 08/13/2024 Can you set up a video chat using your cell phone, computer or another electronic device (without asking for help from someone else)? Yes 08/13/2024 Can you solve or figure out how to solve basic technical issues (without asking for help from someone else)? 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 Never 08/13/2024 4:01 PM EVELYNT Sharmin Watson Q2: How many drinks containing alcohol do you have on a typical day when you are drinking? Patient does not drink 08/13/2024 4:01 PM Sharmin Liu Q3: How often do you have six or more drinks on one occasion? Never 08/13/2024 4:01 PM Sharmin Liu * Over the last 2 weeks, how often have you been bothered by any of the following problems? Question Answer Date of Assessment Author Feeling nervous, anxious, or on edge 1 09/24/2023 10:04 AM EDT Akil Lau CRS Not being able to stop or co ntrol worrying 3 09/24/2023 10:04 AM EDT Akil Lau CRS Worrying too much about diff erent things 3 09/24/2023 10:04 AM EDT Akil Lau CRS Trouble relaxing 2 09/24/2023 10:04 AM EDT Akil Lau CRS Being so restless that it is hard to sit still 3 09/24/2023 10:04 AM EDT Akil Lau CRS Becoming easily annoyed or irritable 3 09/24/2023 10:04 AM EDT Akil Lau CRS Feeling afraid as if somethi ng awful might happen 2 09/24/2023 10:04 AM EDT Akil Lau CRS SENG-7 Total Score 17 09/24/2023 10:04 AM EDT Akil Lau CRS * If you checked off any problems on this questionnaire, Question Answer Date of Assessment Author How difficult have these problems made it for you to do your work, take care of things at home, or get along with other people? Very difficult 09/24/2023 10:01 AM EDT Akil Lau CRS documented as of this encounter Plan of Treatment Upcoming Encounters Date Type Department Care Team (Late st Contact Info) Description 11/03/2024 12:25 PM EDT [facility] [address] [place] [address] 11/03/2024 12:30 PM EDT Appointment [facility] - Ultrasound [address] [place] [address] 12/14/2024 12:55 PM EDT [facility] [address] [place] [address] 12/14/2024 1:00 PM EDT [facility] - Ultrasound [address] [place] [address] documented as of this encounter Procedures Procedure Name Priority Date/Time Associated Diagnosis Comments 15 [place] IO-PERIAPICAL 1ST RADIOGRAPHC IMAGE Routine 11/05/2022 1:15 PM EDT Dental abscess documented in this encounter Results * 15 WI IO-PERIAPICAL 1ST RADIOGRAPHC IMAGE (11/05/2022 1:15 PM EDT) Anatomical Region Laterality Modality Intra-Oral Radio graphy Narrative 11/05/2022 1:15 PM EDT This exam was performed by the Department of Dentistry. Please see the Medical Record for the interpretation of this procedure by the Dentist. Procedure Note Radiologist, [place] - 11/05/2022 This exam was performed by the Department of Dentistry. Please see theMedical Record for the interpretation of this procedure by the Dentist. us Hiba Elnour DMD IMG DENTAL XR PROCEDURES Final R esult documented in this encounter Visit Diagnoses Not on filedocumented in this encounter Additional Health Concerns Infection Onset Date Last Indicated Resolved Time Rule out COVID-19 and Respir atory Viruses 06/26/2024 06/26/2024 06/26/2024 9:13 PM E DT documented as of this encounter Care Teams Strapper And Buffer Relationship Specialty Start Date End Date Rodolfo Plunkett MD [address] [facility] [place] [phone] PCP - General Family Medicine 08/24/21 06/26/24 documented as of this encounter
--- OUTSIDE RECORDS SUMMARY | 2024-01-15 13:36 | XMS_ITS | Encounter Summary ---
Author Organization [facility] Address [address] [place] [address] Care Team Providers Care Orthopedic Shoe Maker Name Role Phone Rodolfo Plunkett MD Primary Care Provider [phone] Encounter Details Date Type Department Care Team (Latest Contact Info) Description 01/15/2024 12:36 PM [facility] Hospital Encounter [facility] Imaging Services - [place] [facility] - XRay [address] [facility] [place] [address] Chest congestion; Other chest pain; Fever, unspecified [...] often do you attend chur ch or samaritan services? Never 09/24/2023 Do you belong to any clubs o r organizations such as worship groups, unions, fraternal or athletic groups, or [...] things needed for daily living? Yes 2024 [place] Depression Scale Answer Date Recorded [place] Depression Scale Total 16 08/01/2023 The thought [...] were you homeless or living in a fdc (including now)? Patient unable to answer 2024 [...] declined 08/13/2024 How often do you attend worship or samaritan serv ices? Patient declined 08/13/2024 Do you belong to any clubs o r organizations such as worship groups, unions, fraternal or athletic groups, or [...] housing, medical care, and heating? Hard 08/13/2024 [facility] Occup[facility] ional Health - Occupational Stress [...] any time in the past 12 m [facility], were you homeless or living in a fdc (including now)? No 08/13/2024 [facility] Utilities Answer Date Recorded In [...] occasion? Never 08/13/2024 4:01 PM EDT Sharmin Watson documented as of this encounter Plan of Treatment Upcoming Encounters Date Type Department Care Team (Late st Contact Info) Description 11/03/2024 12:25 PM EDT Office Visit [facility] [address] [place] [address] 11/03/2024 12:[address] [facility] - Ultrasound [address] [place] [address] 12/14/2024 12:55 PM EDT Office Visit [facility] [address] [place] [address] 12/14/2024 1:00 PM EDT [facility] - Ultrasound [address] [place] [address] documented as of this encounter Procedures Procedure [...] documented as of this encounter Care Teams Orthopedic Shoe Maker Relationship Specialty Start Date End Date Rodolfo Plunkett MD [address] [facility] [place] [phone] PCP - General Family Medicine 08/24/21 06/26/24 documented as of this encounter
--- NOTE | ~2024-10-18 | XR_ITS ---
CLINICAL HISTORY: trauma,pain Cervical spine three views Comparison: None provided Findings: No acute fracture or dislocation. Posterior alignment is normal. No significant degenerative change. No radiopaque foreign bodies. Impression: No acute processes This document has been electronically signed by: Kieran Branch MD on 10/18/2024 20:06:57
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
[2024-10-18 17:19] VITALS: BP 96/59; PULSE 87; RESP 18; TEMP 36.7; O2SAT 100; BMI 16.0
--- OUTSIDE RECORDS SUMMARY | 2024-10-18 17:50 | XMS_ITS ---
Author Organization [email or web address] Address [address] [place] [address] Care Team Providers Care Unclaimed Property Officer Name Role Phone Unknown Primary Care Provider Unavailabl e Social Work Status:Enrolled (Active) Start date:08/13/2024 Enrollment date:08/13/2024 Enrollment reason:Identified through Adjunct Psychology Faculty Member Coordination referral Related social drivers of health:Food Insecurity, Transportation Needs Overview Assists patients with obtaining needed community resources, services and equipment. Advocates for the patient's self determination and appropriate levels of care. Case Team Name Relationship Phone Sharmin Watson(Responsible Staff) Continued Care and Services Coordination
--- OUTSIDE RECORDS SUMMARY | 2024-10-18 17:50 | XMS_ITS | Encounter Summary ---
Author Organization [facility] Address [address] [place] [address] Care Team Providers Care Spring Repairer Helper Hand Name Role Phone Unknown Primary Care Provider Unavailabl e Encounter Details Date Type Department Care Team (Late st Contact Info) Description 10/13/2024 Patient Outreach [facility] Care Management [address] [place] [address] Sharmin Watson [address] [place] [address] Encounter for supervision of other normal in second trimester ([facility]/HCC) (Primary Dx) Social History Tobacco Use Types Packs/Day Years Used Date Smoking Tobacco: Some Days Cigarettes Passive Smoke Exposure: Current Smokeless Tobacco: Never Alcohol Use Standard Drinks/Week Comments Not Currently [...] often do you attend chur ch or caodaism services? Never 09/24/2023 Do you belong to any clubs o r organizations such as restorationist groups, unions, fraternal or athletic groups, or [...] things needed for daily living? Yes 2024 Montague Depression Scale Answer Date Recorded [place] Depression Scale Total 16 08/01/2023 The thought [...] time in the past 12 m [facility], were you homeless or living in [...] declined 08/13/2024 How often do you attend restorationist or caodaism serv ices? Patient declined 08/13/2024 Do you belong to any clubs o r organizations such as restorationist groups, unions, fraternal or athletic groups, or [...] housing, medical care, and heating? Hard 08/13/2024 [facility] - Occupational Stress Questionnaire Answer Date Recorded [...] time in the past 12 m [facility], were you homeless or living in a longterm (including now)? No 08/13/2024 [facility] Utilities Answer Date Recorded In the past 12 months has [facility] electric, gas, oil, or water company [...] on file documented as of this encounter Miscellaneous Notes * Care Coordination Progress Note - Sharmin Watson - 10/13/2024 9:41 AM EDT SW reached out to pt today and left VM with direct phone number. Sw will make another attempt in 2 days and send portal message if necessary. documented in this encounter Plan of Treatment Upcoming Encounters Date Type Department Care Team (Late st Contact Info) Description 11/03/2024 12:25 PM EDT Office Visit [facility] [address] [place] [phone] 11/03/2024 12:30 PM EDT Appointment [facility] - Ultrasound [address] [place] [phone] 12/14/2024 12:55 PM EDT Office Visit [facility] [address] [place] [phone] 12/14/2024 1:00 PM EDT Appointment [facility] - Ultrasound [address] [place] [phone] documented as of this encounter Goals Goal Patient Goal Type Associated Problems Recent Progress Patient-Stated? Author Financial insecurity Care Plan Outpatient Care Plan Problem No Sharmin Watson documented as of this encounter Visit Diagnoses Diagnosis Encounter for supervision of other normal in second trimester ([facility]HS/HCC)- Primary documented in this encounter Additional Health Concerns Active Problems Noted Date Diagnosed Date Outpatient Care Plan Problem 08/13/2024 documented as of this encounter Care Teams Spring Repairer Helper Hand Relationship Specialty Start Date End Date Unknown PCP - General 07/29/24 documented as of this encounter
--- OUTSIDE RECORDS SUMMARY | 2024-10-18 17:50 | XMS_ITS | Continuity of Care Document ---
Author Organization [facility] Address [address] [place] [address] Phone [phone] Care Team Providers Care Shoe Repairer Helper Name Role Phone NIKKI EVANS D.O. Care Team Information Filling Machine Tender Unavailable No PCP, No Referring Primary Care Physician Unav ailable Problems Active Problems Provider Date Anemia Vikas Gordon M.D. Onset: 06/30/2019 Anxiety Vikas Gordon M.D. Onset: 06/30/2019 Asthma Vikas Gordon M.D. Onset: 06/30/2019 Depressive disorder Vikas Gordon M.D. On set: 06/30/2019 Social History Type Date Description Comments Sex Female Occupation [employer] Right-Handed ETOH Use Currently consumes [...] spasm 30tabs Vikas Gordon M.D. 06/30/2019 Hydroxyzine [id number] Capsules Take 1 Capsule (25 MG Total) By Mouth 3 (Three) Times A Day Unknown [id number] Capsules Take 1 Capsule By Mouth Three Times A Day Unknown Functional Status Functional Condition Comment Date Status None Active
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
--- OUTSIDE RECORDS SUMMARY | 2024-10-18 17:50 | XMS_ITS | Clinical Summary ---
Author Organization [facility] Address [address] [place] [address] Care Team Providers Care Gun Stock Maker Name Role Phone Unavailable Primary Care Provider Unavailabl e Source Comments PLEASE NOTE, if this patient is a minor, it may be UNLAWFUL to discuss sensitive information that is contained in these records (such as FAMILY PLANNING, MENTAL HEALTH or SUBSTANCE ABUSE) with the minor patient's parent or other person without the patient's specific authorization.[facility] Allergies Active Allergy Reactions Criticality Noted Date Comments Bee Venom Protein (Honey Bee) 2023 Penicillin G 12/15/2023 Medications fluoxetine HCl (FLUOXETINE ORAL) Take by mouth Active busPIRone (BUSPAR) 5 mg tablet Take 5 mg by mouth 3 (three) times daily Active ferrous sulfate (IRON ORAL) Take by mouth Acti ve aripiprazole (ABILIFY ORAL) Take by mouth A ctive trazodone HCl (TRAZODONE ORAL) Take by mouth Active HYDROXYZINE HCL ORAL Take by mouth Active naloxone (NARCAN) 4 mg/actuation nasal spray Place 1 [place] into the nostril(s) as needed for opioid reversal 2 Each 2 12/16/2023 Active Social History Tobacco Use Types Packs/Day Years Used Date Smoking Tobacco: Never Assessed Social Connections Answer Date Recorded Connectedness 0 12/15/2023 Financial Resource Strain Answer Date R ecorded Financial Resource Strain 0 2023 Stress Answer Date Recorded Stress 0 12/15/2023 Physical Activity Answer Date Recorded Physical Activity 0 12/15/2023 Food Insecurity Answer Date Recorded Food 0 12/15/2023 Transportation Needs Answer Date Record ed Transportation 0 12/15/2023 Housing Stability Answer Date Recorded Housing 0 12/15/2023 Safety and Environment Answer Date Samuel rded Safety 0 12/15/2023 Utilities Answer Date Recorded Utilities 0 12/15/2023 Employment Answer Date Recorded Stress 0 12/15/2023 Comments Unknown Sex and Gender Information Value Date Recorded Sex Assigned at Female 12/15/2023 7:55 AM PDT Legal Sex Female 7:53 AM PDT Gender Identity Female 12/15/2023 7:55 AM PDT Sexual Orientation Straight 12/15/2023 7: 55 AM PDT Last Filed Vital Signs Vital Sign Reading Time Taken Comments Blood Pressure 120/80 12/15/2023 10:59 AM EDT Pulse 55 12/15/2023 10:59 AM EDT Temperature 36.8 C (98.2 F) 12/15/2023 10:59 AM EDT Respiratory Rate 16 12/15/2023 10:59 AM EDT Oxygen Saturation 99% 12/15/2023 10:59 AM EDT Inhaled Oxygen Concentration - - Weight 61.2 kg (135 lb) 12/15/2023 10:59 AM EDT Height 170.2 cm (5' 7 ) 12/15/2023 10:59 AM EDT Body Mass Index 21.14 12/15/2023 10:59 AM EDT Plan of Treatment Health Maintenance Due Date Last Done Comments Anxiety Screening 1990 Diabetes Screening 1990 HPV Screening 1990 Pap + HPV 1990 STI Counseling 1990 Tobacco Screening 1990 Relationship Safety Screening/Counseling 2005 Cervical Cancer Screening 04/29/2011 Pap Smear 04/29/2011 Imm-Pneumococcal (2 of 2 - PCV) 11/11/2016 6, 11/18/2009 [id number] () 10/20/2023 Lipid Screening 10/27/2023 10/26/2022 Alcohol and Drug Screen 02/19/2024 Depression Annual Screen 02/19/2024 Imm-Influenza (#1) 2024 11/12/2015 Imm-DTaP/Tdap/Td (6 - Td or Tdap) 11/13/2025 11/14/2015, 11/14/2015, 05/05/2013, Additional history exists Hypertension Screening (#1) 12/14/2026 Imm-Hepatitis B Completed 04/04/2004, 04/19, 03/29/2003 HIV Screening Completed 12/15/2023, 06/19, 09/28/2021 Cervical Ablation/Cold-Knife Conization Discontinued Cervical Cryotherapy Discontinued Colposcopy Discontinued Endometrial Biopsy Discontinued Excision/Leep Discontinued HPV Genotyping Discontinued Vaginal Pap Discontinued Vulvoscopy Discontinued Procedures Procedure Name Priority Date/Time Associated Diagnosis Comments HIV RAPID (POCT) Routine 12/15/2023 11:0 9 AM EDT Chronic hepatitis C without hepatic coma (HCC-CMS) Exposure to sexually transmitted disease (STD) Encounter for screening for other viral diseases Screening examination for venereal disease from Last 3 Months or Most Recently Relevant to Health Maintenance Results * HIV RAPID (POCT) (12/15/2023 11:09 AM EDT) HIV 1 ANTIBODY NEGATIVE Negative [facility] BACK OFF[facility] INTERNAL CONTROL PASS PASS [facility] MED BACK OFFICE Blood Blood / Unknown 12/15/2023 1 1:09 AM EDT us [facility] - BLOOD DRAW Final Resul t [facility] MED BACK OFFICE [address] [place] [address], from Last 3 Months or Most Recently Relevant to Health Maintenance [facility]
--- OUTSIDE RECORDS SUMMARY | 2024-10-18 17:50 | XMS_ITS | Clinical Summary ---
Author Organization [facility] Address [address] [place] [address] Care Team Providers Care Board Hammer Operator Name Role Phone No Pcp, Family [...] GEN Nonreactive Nonreactive 07/16/2022 2:02 PM EDT [employer]-MELANIE ANNAGOLDIE Comment: HIV-1 antigen and HIV-1/HIV-2 antibodies [...] old. For additional information, please refer to http://education.1SDK/faq/WBK335 Blood Blood specimen / Unknown Line / Unknown 07/11/2022 11:29 PM EDT 07/11/2022 11:29 PM EDT Narrative [employer] [facility] - 07/16/2022 2:02 PM EDT Performing Organization Information: Site ID: [id number] Name: [employer] [place] Address: [address] [place], [place] Director: Antonio Tiwari MD PhD us Maris MCGHEE [facility] BLOOD ORDERABLES F inal Result [employer] [place], [place] from Last 3 Months or Most Recently Relevant to Health Maintenance Insurance [place] [id number] [employer] Care Teams Board Hammer Operator Relationship Specialty Start Date End Date No Pcp, Family, [address] (Not a Real Address) [place] [id number] PCP - General 09/28/21
[2024-10-18 17:58] LABS: MANUAL DIFF FLAG NO
[2024-10-18 18:01] LABS: Hematocrit 26.6 % (37.0-47.0); Hemoglobin 9.2 g/dl (12.0-16.0); Imm Gran Abs Auto 0.02 X10*3/uL (0.00-0.03); Imm Gran Pct Auto 0.3 % (0.0-0.4); Lymphocytes Absolute Auto 2.6 X10*3/uL (1.2-4.9); Mean Corpuscular HGB Conc 34.6 g/dl (31.0-35.0); Mean Corpuscular Hemoglobin 28.8 pg (27.0-33.0); Mean Corpuscular Volume 83.4 fL (80.0-98.0); NRBC Abs Auto 0.000 X10*3/uL (0.0-0.012); NRBC Pct Auto 0.0 /100WBC (0.0-0.2); Platelet Count 274 X10*3/uL (160-400); Red Blood Count 3.19 X10*6/uL (4.20-5.50); White Blood Count 6.7 X10*3/uL (4.8-10.8)
[2024-10-18 18:30] LABS: Alanine Aminotransferase 12 U/L (0-31); Albumin Level 3.4 g/dL (3.5-5.0); Alkaline Phosphatase 72 U/L (39-117); Anion Gap 12 (12-20); Aspartate Amino Transferase 28 U/L (5-31); Blood Urea Nitrogen 6 mg/dL (9-16); Calcium 8.0 mg/dL (8.4-10.2); Carbon Dioxide 22 mmol/L (22-29); Chloride 106 mmol/L (96-108); Creatinine Clr Calc Pharmacy 94.6; Estimated Glomerular Filt Rate > 60; Lipase < 4 U/L (8-78); Magnesium 1.9 mg/dL (1.6-2.6); Potassium 3.4 mmol/L (3.3-5.1); Sodium 137 mmol/L (135-145); Total Protein 6.0 g/dL (6.5-8.0)
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
[2024-10-18 20:25] VITALS: BP 107/52; PULSE 83; RESP 16; TEMP 36.3; O2SAT 100
--- NOTE | 2024-10-18 20:38 | PC.NURSE ---
at this time, pt states to Paty MCGHEE that she is having auditory hallucinations and has had these in the past. pt denies si/hi at this time but states she would like to speak to care team.
--- NOTE | 2024-10-18 22:16 | PC.NURSE ---
care team at bedside with pt.
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
[2024-10-18] MEDS: Nicotine 21 MG PATCH.TD24 TRANSDERMA (22:54)
[2024-10-19 05:07] VITALS: BP 114/63; PULSE 78; RESP 16; TEMP 36.6; O2SAT 98
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
[2024-10-19 08:23] VITALS: BP 114/63; PULSE 78; RESP 16; TEMP 36.6; O2SAT 98
== END 2024-10-19 08:23 | disposition home or self-care (01) ==
PROVIDERS: Physician Assistant Medical; Emergency Provider Emergency Medicine
DX: O99.342 Other mental disorders complicating pregnancy, second trimester (principal); F41.8 Other specified anxiety disorders; O99.322 Drug use complicating pregnancy, second trimester; F14.10 Cocaine abuse, uncomplicated; S70.02XA Contusion of left hip, initial encounter; M54.9 Dorsalgia, unspecified; F43.10 Post-traumatic stress disorder, unspecified; Y04.0XXA Assault by unarmed brawl or fight, initial encounter; Y93.89 Activity, other specified; Y92.89 Other specified places as the place of occurrence of the external cause; Y99.8 Other external cause status
CPT/HCPCS: 36415; 72040; 80053; 80307; 83690; 83735; 84702; 85025; 99284; J0571; S9485

== ENCOUNTER → 2024-10-18 19:11 | Outpatient (BNV) | payer BC, SELFPAY | PROVIDERS: Emergency Provider Emergency Medicine; Visit Provider Radiology Diagnostic Radiology | DX: M54.2 Cervicalgia (principal) | CPT/HCPCS: 72040 ==

== ENCOUNTER 2024-11-02 10:07 | Emergency (ER) | payer BC, SELFPAY ==
--- OUTSIDE RECORDS SUMMARY | 2022-11-05 13:10 | XMS_ITS | Encounter Summary ---
[facility] Address [address] [place] [address] Care Team Providers Care Chlorinator Operator Name Role Phone Rodolfo Plunkett MD Primary Care Provider [phone] Encounter Details Date Type Department Care Team (Late st Contact Info) Description 11/05/2022 1:10 PM EDT Hospital Encounter [facility] [address] [place] [phone] Social History Tobacco Use Types Packs/Day Years [...] often do you attend chur ch or roman catholic services? Never 09/24/2023 Do you belong to any clubs o r organizations such as nondenominational groups, unions, fraternal or athletic groups, or [...] things needed for daily living? Yes 2024 [place] Depression Scale Answer Date Recorded [place] Depression Scale Total 16 08/01/2023 The [...] were you homeless or living in a correction (including now)? Patient unable to answer 2024 [...] declined 08/13/2024 How often do you attend nondenominational or roman catholic serv ices? Patient declined 08/13/2024 Do you belong to any clubs o r organizations such as nondenominational groups, unions, fraternal or athletic groups, or [...] housing, medical care, and heating? Hard 08/13/2024 [facility] [place] of Occupat ional Health - Occupational Stress [...] any time in the past 12 m [facility], were you homeless or living in a correction (including now)? No 08/13/2024 [facility] Utilities Answer Date Recorded In the past 12 months has [facility] electric, gas, oil, or water company threatened [...] Description 11/03/2024 12:25 PM EDT [facility] [address] [place] [address] 11/03/2024 12:30 PM EDT Hospital Encounter [facility] - Ultrasound [address] [place] [address] 12/14/2024 12:55 PM EDT Office [facility] [address] [place] [address] 12/14/2024 1:00 PM EDT Appointment [facility] - Ultrasound [address] [place] [address] documented as of this encounter Procedures Procedure Name Priority Date/Time Associated Diagnosis Comments 15 [place] IO-PERIAPICAL 1ST RADIOGRAPHC IMAGE Routine 11/05/2022 1:15 PM EDT Dental abscess documented in this encounter Results * 15 [place] IO-PERIAPICAL 1ST RADIOGRAPHC IMAGE (11/05/2022 1:15 PM [...] documented as of this encounter Care Teams Chlorinator Operator Relationship Specialty Start Date End Date Rodolfo Plunkett MD [address] [facility] [place] [phone] PCP - General Family Medicine 08/24/21 06/26/24 documented as of this encounter
--- OUTSIDE RECORDS SUMMARY | 2024-01-15 13:36 | XMS_ITS | Encounter Summary ---
Author Organization [facility] Address [address] [place] [address] Care Team Providers Care Medical Receptionist Assistant Name Role Phone Rodolfo Plunkett MD Primary Care Provider [phone] Encounter Details Date Type Department Care Team (Latest Contact Info) Description 01/15/2024 12:[address] [facility] Hospital Encounter [facility] Imaging Services - [place] [facility] - XRay [address] [facility] [place] [address] Chest congestion; Other chest pain; Fever, unspecified [...] often do you attend chur ch or church services? Never 09/24/2023 Do you belong to any clubs o r organizations such as sikh groups, unions, fraternal or athletic groups, or [...] things needed for daily living? Yes 2024 [place] Depression Scale Answer Date Recorded [place] Depression Scale Total 16 08/01/2023 The thought [...] were you homeless or living in a alf (including now)? Patient unable to answer 2024 [...] declined 08/13/2024 How often do you attend sikh or church serv ices? Patient declined 08/13/2024 Do you belong to any clubs o r organizations such as sikh groups, unions, fraternal or athletic groups, or [...] housing, medical care, and heating? Hard 08/13/2024 [facility] Occupat ional Health - Occupational [...] any time in the past 12 m [facility], were you homeless or living in a alf (including now)? No 08/13/2024 [facility] Utilities Answer Date Recorded In the [...] 11/03/2024 12:25 PM EDT Office Visit [facility] [address] [place] [address] 11/03/2024 12:30 PM EDT Hospital Encounter [facility] - Ultrasound [address] [place] [address] 12/14/2024 12:55 PM EDT Office Visit [facility] [address] [place] [address] 12/14/2024 1:00 PM EDT Appointment [facility] - Ultrasound [address] [place] [address] documented as of this encounter Procedures Procedure [...] documented as of this encounter Care Teams Medical Receptionist Assistant Relationship Specialty Start Date End Date Rodolfo Plunkett MD [address] [facility] [place] [address] PCP - General Family Medicine 08/24/21 06/26/24 documented as of this encounter
[2024-11-02 10:23] VITALS: BP 104/54; BP 110/60; PULSE 80; PULSE 81; RESP 16; O2SAT 100; O2SAT 99; BMI 16.7
[2024-11-02 10:26] VITALS: BP 104/54; PULSE 81; RESP 16; O2SAT 99
--- NOTE | 2024-11-02 10:40 | ED_ITS ---
HPI - General Adult General Chief complaint: General Medical Stated complaint: withdrawal Suboxone, cramps Time Seen by Provider: 11/02/24 10:40 Source: patient and RN notes reviewed Mode of arrival: ambulatory Limitations: no limitations History of Present Illness ED Provider: Irene Reynoso PA-C HPI narrative: This is a 34-year-old female, (2 abortions, 1 miscarriage), with a past medical history of PTSD, bipolar, schizophrenia, anxiety, substance abuse on Subutex, currently 23 week and 4 day , here with concerns for opiate withdrawal. Patient reports that she has been on Subutex 8 mg for the last 2 years, states that she is currently relocating from [place] has not established any MAT care. She does report that she has had lower abdominal cramps, chills, and lower back pain, which she states is consistent with this as well as withdrawal. She denies any fevers, chills, chest pain, shortness for breath, vaginal bleeding or discharge, or any urinary symptoms. She has not established any OB care at this time, last saw OB 3-4 months ago. No other complaints or concerns at this time. MD complaint: Opioid withdrawal Onset (ago): day(s) Quality: aching Relieving factors: none Exacerbating factors: none Associated symptoms: denies other symptoms Treatments prior to arrival: none Related Data Previous Rx's ?Medication ?Instructions ?Recorded buprenorphine HCl 8 mg sublingual 8 mg sublingual GIORGIO Y #14 tabs 11/02/24 tablet Allergies Allergy/AdvReac Type Severity Reaction Status Date / Time bee pollen (bee stings) Allergy Unknown Verified 11/02/24 10:25 Penicillins (PCN) Allergy Unknown Verified 11/02/24 10:25 Review of Systems Review of Systems: Constitutional : No Fever, No Chills ENT/Mouth : No sore throat, No Rhinorrhea Eyes: No Eye Pain, No Swelling, No Redness Cardiovascular : No Chest Pain, No SOB Respiratory : No Cough, No Sputum Gastrointestinal : No Nausea, No Vomiting, No Diarrhea, No abdominal Pain Genitourinary : No Dysuria, No Hematuria Musculoskeletal : No joint pain, No Myalgias, No Joint Swelling Skin : No Skin Lesions Neuro : No Weakness, No Numbness, No Headache All other systems reviewed and are negative Yes all other systems are reviewed and are negative Constitutional: Constitutional: Reports as per HPI Physical Exam ED Vital Signs: Vital Signs - 24 hr 11/02/24 10:23 11/02/24 10:26 11/02/24 13:30 Temperature 97.0 F Pulse Rate 81 81 81 Respiratory Rate 16 16 16 Blood Pressure 104/54 L 104/54 L 104/54 L Pulse Oximetry 99 99 99 Oxygen Delivery Method Room Air Room Air Room Air BMI result Body Mass Index 16.7 Const General: cooperative, comfortable and no acute distress Orientation/consciousness: patient oriented x3 Limitations: no limitations HENMT Head: Yes normal to inspection, Yes normocephalic and Yes atraumatic Ears: hearing grossly normal bilaterally General nose exam: Normal external nose present Face and sinus: Yes normal facial exam Mouth: Normal oral and palatal mucosa present, oropharynx normal and moist mucous membranes Throat: Yes posterior oropharynx normal Eyes General: appearance normal, both eyes and all related structures Eyelids: Yes eyelids normal Conjunctivae: conjunctivae normal Sclerae: sclerae normal Pupils: Equal, round and reactive pupils present EOM: EOMs intact bilaterally Neck Neck: Yes normal visual inspection, Yes full ROM and Yes no lymphadenopathy Lymphatic: no lymphadenopathy noted Chest Chest palpation & inspection: normal inspection of the chest Resp Effort & Inspection: normal respiratory effort and able to speak in complete sentences Auscultation: clear to auscultation bilaterally, no crackles, no rales, no rhonchi and no wheezes Cardio Rate: regular rate Rhythm: regular rhythm Heart sounds: S1 normal heart sound present and S2 normal heart sound present GI Other: Gravid abdomen consistent with being approximately 6 months , soft, nontender Inspection: Yes normal to inspection Skin General skin exam: no rashes or lesions noted Trauma: no lacerations or abrasions Wounds: no wounds Neuro General: patient oriented x3 and moves all extremities Cranial nerves: Yes Equal, round and reactive pupils present Extrem General: Yes normal to inspection Right upper extremity: normal to inspection Left upper extremity: normal to inspection Right lower extremity: normal to inspection Left lower extremity: normal to inspection Medications Administered Discontinued Medications Generic Name Dose Route Start Last Admin Trade Name Freq PRN Reason Stop Dose Admin Buprenorphine HCl 8 mg 11/02/24 11:19 11/02/24 11:28 Buprenorphine Hcl 8 Mg Tab.Subl SUBLINGUAL 11/02/24 11:20 8 mg ONCE ONE Administration Medical Decision Making Medical Decision Making MDM Narrative: This is a 34-year-old female who presents emergency department with concerns of lower abdominal cramping, chills, back pain for the last week which she reports is from opioid withdrawal. She states that she has been on Subutex for the last 2 weeks however states that she has been unable to take this as she has not had a established provider as of yet. She has been seen here in the emergency room several times where she would get dosages of the Subutex. On arrival, patient is well-appearing, appears to be under no acute distress, abdomen is soft and nontender. No abnormal vaginal discharge or bleeding. Reached out to Elizabeth Muir from the comprehensive care team, who will see patient however given lower abdominal cramping as well as low back pain, as well as being approximately 6 months , we are unable to assess for any acute distress to mom or baby therefore patient needs higher level of care with Ob coverage. Discussed with patient, she is agreeable for possible transfer. We will continue to closely monitor. 11:14 AM 11/02/2024 (Irene Reynoso PA-C): Page placed out to [facility]. 11:18 AM 11/02/2024 (Irene Reynoso PA-C): Discussed with transfer line, will page out to Ob. 11:49 AM 11/02/2024 (Irene Reynoso PA-C): [place] back from [facility]. Discussed case with Dr. Villegas, they recommend transfer to [facility]. heart tones for achieved, regular rhythm at 135bpm. Patient was seen by the comprehensive care team, given 8 mg of Subutex. She will also follow-up with the comprehensive care team. Transfer of care initiated Differential Diagnosis Differential Diagnoses: The differential diagnosis associated with the presentation includes Opioid use disorder, threatened miscarriage, opioid withdrawal Lab Data Labs: Lab Results 11/02/24 Range/Units 11:59 Urine Color Yellow Urine Appearance Clear Urine pH 6.5 (5.0-9.0) Ur Specific [place] 1.015 (1.005-1.025) Urine Protein Negative (Neg-Trace) mg/dL Urine Glucose (UA) Negative (Negative) mg/dL Urine Ketones Negative (Negative) mg/dL Urine Blood Negative (Negative) Urine Nitrite Negative (Negative) Ur Leukocyte Esterase Negative (Negative) Urine RBC 0-2 (0-2) /HPF Urine WBC 0-5 (0-5) /HPF Ur Squamous Epith Cells 0-2 (0-2) /HPF Urine Bacteria None Seen (None Seen) Hyaline Casts 0-2 (0-2) /LPF Urine Opiates Screen Not Detected (Not Detect) Ur Buprenorphine Scrn Not Detected (Not Detect) ng/mL Ur Oxycodone Screen Not Detected (Not Detect) ng/mL Urine Methadone Screen Not Detected (Not Detect) ng/mL Urine Fentanyl Screen Not Detected (Not Detect) Ur Barbiturates Screen Not Detected (Not Detect) Ur Phencyclidine Scrn Not Detected (Not Detect) Ur Amphetamines Screen Not Detected (Not Detect) U Benzodiazepines Scrn Not Detected (Not Detect) Urine Cocaine Screen POSITIVE H (Not Detect) U Marijuana (THC) Screen POSITIVE H (Not Detect) Discharge Plan Discharge Clinical Impression: Opioid withdrawal, Abdominal cramping affecting Patient Disposition: Xfer [facility] Transfer Details: [facility] Additional Instructions: Please call the number below to set up an appointment with the comprehensive care team for further prescriptions of Subutex. [facility] (M-F 9am-5p) [address] [place] [address], [facility] [address] [place], [place]. [phone] Prescriptions: New buprenorphine HCl 8 mg tablet, sublingual 8 mg sublingual DAILY Qty: 14 0RF Interventions: Acute Care Transfer Worksheet (ED) Last Done: 11/02/24 13:30 Discharge Date/Time: 11/02/24 13:31 Print Language: Slovak
--- NOTE | 2024-11-02 11:12 | PC.NURSE ---
Elizabeth Muir at bedside at this time for evaluation
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
[2024-11-02 12:13] LABS: Appearance Urine Clear; Glucose Urine UA Negative (Negative); PH 6.5 (5.0-9.0); Specific Gravity - Urine 1.015 (1.005-1.025)
[2024-11-02 12:24] LABS: Cannabinoid Screen Urine POSITIVE (Not Detect)
--- NOTE | 2024-11-02 12:51 | PC.NURSE ---
heart tones completed by Irene MCGHEE and Raza, plan to transfer to [place], report given to Aicha
[2024-11-02 13:30] VITALS: BP 104/54; PULSE 81; RESP 16; TEMP 36.1; O2SAT 99
--- OUTSIDE RECORDS SUMMARY | 2024-11-02 15:35 | XMS_ITS | Continuity of Care Document ---
Author Organization [facility] Address [address] [place] [address] Phone [phone] Care Team Providers Care Nail Polish Brush Machine Feeder Name Role Phone NIKKI EVANS D.O. Care Team Information Nuclear Medical Technologist Unavailable No PCP, No Referring Primary Care Physician Unav ailable Problems Active Problems Provider Date Anemia Vikas Gordon M.D. Onset: 06/30/2019 Anxiety Vikas Gordon M.D. Onset: 06/30/2019 Asthma Vikas Gordon M.D. Onset: 06/30/2019 Depressive disorder Viksa Gordon M.D. 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 06/30/2019 Hydroxyzine [id number] Capsules Take 1 Capsule (25 MG Total) By Mouth 3 (Three) Times A Day Unknown [id number] Capsules Take 1 Capsule By Mouth Three Times A Day Unknown Functional Status Functional Condition Comment Date Status None Active
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
--- OUTSIDE RECORDS SUMMARY | 2024-11-02 15:35 | XMS_ITS ---
Author Organization [employer] Address [address] [place] [address] Care Team Providers Care Residential Sales Rep Name Role Phone Unknown Primary Care Provider Unavailabl e Social Work Status:Enrolled (Active) Start date:08/13/2024 Enrollment date:08/13/2024 Enrollment reason:Identified through Curriculum Development Specialist Coordination referral Related social drivers of health:Food Insecurity, Transportation Needs Overview Assists patients with obtaining needed community resources, services and equipment. Advocates for the patient's self determination and appropriate levels of care. Case Team Name Relationship Phone Sharmin Watson(Responsible Staff) Continued Care and Services Coordination
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
--- OUTSIDE RECORDS SUMMARY | 2024-11-02 15:35 | XMS_ITS | Encounter Summary ---
[facility] Address [address] [place] [address] Care Team Providers Care Plaster Mechanic Name Role Phone Unknown Primary Care Provider Unavailabl e Encounter Details Date Type Department Care Team ([facility] Contact Info) Description 11/02/2024 [facility]phone [facility] SOCIAL WELFARE CLERK - [facility] [address] [place] [address] Bette Witt DO [address] [address] Social History Tobacco Use Types Packs/Day Years [...] 09/24/2023 How often do you attend chur or hoahaoism services? Never 09/24/2023 Do you belong to [...] things needed for daily living? Yes 2024 [place] Depression Scale Answer Date Recorded [place] Depression Scale Total 16 08/01/2023 The thought [...] any time in the past 12 m [facility], were you homeless or living in [...] How often do you attend pentecostal or hoahaoism serv ices? Patient declined 08/13/2024 Do you [...] housing, medical care, and heating? Hard 08/13/2024 [facility] - Occupational Stress [...] any time in the past 12 m onths, were you homeless or living in a intermediate (including now)? No 08/13/2024 [facility] Utilities Answer Date Recorded In the past 12 months has th e [employer], gas, oil, or water [employer] threatened to shut off services in your [...] as of this encounter Miscellaneous Notes * Telephone Encounter - Andrade Chance - 11/02/2024 2:57 PM EDT Intake note and dating US 07/06/24 faxed. Pt did not attend any other visits or complete labs. * Telephone Encounter - Shannen Diaz - 11/02/2024 2:32 PM EDT Pc from [facility] @ [facility]. Pt is currently in triage there ([facility]). They need all her current records faxed. They are faxing a signed medical release to our office now. documented in this encounter Plan of Treatment Upcoming Encounters Date Type Department Care Team (Late st Contact Info) Description 11/03/2024 12:25 PM EDT Office Visit [facility] [address] [place] [address] 11/03/2024 12:30 PM EDT Hospital Encounter [facility] - Ultrasound [address] [place] [address] 12/14/2024 12:55 PM EDT Office Visit [facility] [address] [place] [address] 12/14/2024 1:00 PM EDT Appointment [facility] - Ultrasound [address] [place] [address] documented as of this encounter Goals Goal Patient Goal Type Associated Problems Recent Progress Patient-Stated? Author Financial insecurity Care Plan Outpatient Care Plan Problem No Sharmin Watson documented as of this encounter Visit Diagnoses Not on filedocumented in this encounter Additional Health Concerns Active Problems Noted Date Diagnosed Date Outpatient Care Plan Problem 08/13/2024 documented as of this encounter Care Teams Plaster Mechanic Relationship Specialty Start Date End Date Unknown PCP - General 07/29/24 documented as of this encounter
--- OUTSIDE RECORDS SUMMARY | 2024-11-02 15:35 | XMS_ITS | Clinical Summary ---
Author Organization [facility] Address [address] [place] [address] Care Team Providers Care Welding Machine Operator Gas Name Role Phone No Pcp, Family Dr [...] GEN Nonreactive Nonreactive 07/16/2022 2:02 PM EDT [employer] [facility]MELANIE ANNAGOLDIE Comment: HIV-1 antigen and HIV-1/HIV-2 antibodies [...] old. For additional information, please refer to http://education.Signal Patterns/faq/TTP338 Blood Blood specimen / Unknown Line / Unknown 07/11/2022 11:29 PM EDT 07/11/2022 11:29 PM EDT Narrative [facility] - 07/16/2022 2:02 PM EDT Performing Organization Information: Site ID: [id number] Name: [facility] [place] Address: [address] [place], [place] Director: Antonio Tiwari MD PhD us Maris [facility] BLOOD ORDERABLES F inal Result [place] from Last 3 Months or Most Recently Relevant to Health Maintenance Insurance [place] [id number] [employer] Care Teams Welding Machine Operator Gas Relationship Specialty Start Date End Date No Pcp, Family, [address] (Not a Real Address) [place] [id number] PCP - General 09/28/21
--- OUTSIDE RECORDS SUMMARY | 2024-11-02 15:35 | XMS_ITS | Clinical Summary ---
Author Organization [facility] Address [address] [place] [address] Care Team Providers Care Cloth Feeder Name Role Phone Unavailable Primary Care Provider [...] (NARCAN) 4 mg/actuation nasal spray Place 1 [place] into the nostril(s) as needed for opioid [...] of 2 - PCV) 11/11/2016 6, 11/18/2009 Lipid Screening 10/27/2023 10/26/2022 Alcohol and Drug Screen 02/19/2024 Depression Annual Screen 02/19/2024 [id number] ( season) 2024 Imm-Influenza (#1) 2024 11/12/2015 Imm-DTaP/Tdap/Td (6 - Td or Tdap) 11/13/2025 11/14/2015, 11/14/2015, 05/05/2013, Additional history exists Hypertension Screening (#1) 12/14/2026 Imm-Hepatitis B Completed 04/04/2004, 04/19, 03/29/2003 Imm-HPV Completed 02/04/2015, 01/18, 07/29/2013 HIV Screening Completed 12/15/2023, 06/19, 09/28/2021 Cervical [...] EDT) HIV 1 ANTIBODY NEGATIVE Negative [facility] MED BACK OFFICE INTERNAL CONTROL PASS PASS [facility] MED BACK OFFICE Blood Blood / Unknown 12/15/2023 1 1:09 AM EDT us Bradford [facility] - BLOOD DRAW Final Resul t [facility] MED BACK OFFICE [address] [address], from Last 3 Months or Most Recently Relevant to Health Maintenance [facility]
== END 2024-11-02 13:31 | disposition short-term general hospital (02) ==
PROVIDERS: Physician Assistant Medical; Emergency Provider Emergency Medicine
DX: O99.322 Drug use complicating pregnancy, second trimester (principal); R10.9 Unspecified abdominal pain; F11.93 Opioid use, unspecified with withdrawal; F19.20 Other psychoactive substance dependence, uncomplicated; F12.90 Cannabis use, unspecified, uncomplicated
CPT/HCPCS: 80307; 81001; 99285; J0571

== ENCOUNTER → 2024-11-02 11:25 | Outpatient (BNV) | payer BC, SELFPAY | PROVIDERS: Emergency Provider Emergency Medicine; Visit Provider Nurse Practitioner Psychiatric/Mental Health | DX: F11.93 Opioid use, unspecified with withdrawal (principal); F11.90 Opioid use, unspecified, uncomplicated | CPT/HCPCS: 99282 ==

== ENCOUNTER 2024-11-03 09:19 | Emergency (ER) | payer BC, SELFPAY ==
--- OUTSIDE RECORDS SUMMARY | 2022-11-05 13:10 | XMS_ITS | Encounter Summary ---
Author Organization [facility] Address [address] [place] [address] Care Team Providers Care Personal Protection Specialist Name Role Phone Rodolfo Plunkett MD Primary Care Provider [phone] Encounter Details Date Type Department Care Team (Late st Contact Info) Description 11/05/2022 1:10 PM EDT Hospital Encounter [facility] - [facility] [address] [place] [phone] Social History Tobacco Use Types Packs/Day Years [...] often do you attend chur ch or congregation services? Never 09/24/2023 Do you belong to any clubs o r organizations such as religious groups, unions, fraternal or athletic groups, or [...] things needed for daily living? Yes 2024 [place] Depression Scale Answer Date Recorded [place] Depression Scale Total 16 08/01/2023 The thought [...] were you homeless or living in a long-term (including now)? Patient unable to answer 2024 [...] declined 08/13/2024 How often do you attend religious or congregation serv ices? Patient declined 08/13/2024 Do you belong to any clubs o r organizations such as religious groups, unions, fraternal or athletic groups, or [...] housing, medical care, and heating? Hard 08/13/2024 [facility] [place] of Occupat ional Health - Occupational Stress [...] time in the past 12 m [facility], were you homeless or living in a long-term (including now)? No 08/13/2024 [facility] Utilities Answer Date Recorded In the past 12 months has [facility] electric, gas, oil, or water company [...] Description 11/03/2024 12:25 PM EDT [facility] [address] [place] [address] 11/03/2024 12:30 PM EDT Hospital Encounter [facility] - Ultrasound [address] [place] [address] 12/14/2024 12:55 PM EDT Office Visit [facility] [address] [place] [address] 12/14/2024 1:00 PM EDT Appointment [facility] - Ultrasound [address] [place] [address] documented as of this encounter Procedures Procedure Name Priority Date/Time Associated Diagnosis Comments 15 [place] IO-PERIAPICAL 1ST RADIOGRAPHC IMAGE Routine 11/05/2022 1:15 PM EDT Dental abscess documented in this encounter Results * 15 [place] IO-PERIAPICAL 1ST RADIOGRAPHC IMAGE (11/05/2022 1:15 PM [...] documented as of this encounter Care Teams Personal Protection Specialist Relationship Specialty Start Date End Date Rodolfo Plunkett MD [address] [facility] [place] [phone] PCP - General Family Medicine 08/24/21 06/26/24 documented as of this encounter
--- OUTSIDE RECORDS SUMMARY | 2024-01-15 13:36 | XMS_ITS | Encounter Summary ---
Author Organization [facility] Address [address] [place] [address] Care Team Providers Care Prototype Fabricator Name Role Phone Rodolfo Plunkett MD Primary Care Provider [phone] Encounter Details Date Type Department Care Team (Latest Contact Info) Description 01/15/2024 12:36 PM [facility] Hospital Encounter [facility] Imaging Services - [facility] [facility] - XRay [address] [facility] [place] [address] Chest congestion; Other chest pain; Fever, unspecified fever cause Social History Tobacco Use Types Packs/Day Years [...] often do you attend chur ch or jehovah's witness services? Never 09/24/2023 Do you belong to any clubs o r organizations such as hoahaoism groups, unions, fraternal or athletic groups, or [...] things needed for daily living? Yes 2024 [place] Depression Scale Answer Date Recorded [place] Depression Scale Total 16 08/01/2023 The thought [...] were you homeless or living in a snf (including now)? Patient unable to answer 2024 [...] declined 08/13/2024 How often do you attend hoahaoism or jehovah's witness serv ices? Patient declined 08/13/2024 Do you belong to any clubs o r organizations such as hoahaoism groups, unions, fraternal or athletic groups, or [...] housing, medical care, and heating? Hard 08/13/2024 [facility] Occup[facility] ional Health - Occupational Stress [...] any time in the past 12 m [facility], were you homeless or living in a snf (including now)? No 08/13/2024 [facility] Utilities Answer Date Recorded In the past 12 months has e electric, gas, oil, or water company threatened [...] for help from someone else)? 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 Never 08/13/2024 4:01 PM EDT Sharmin Watson Q2: How many drinks containing alcohol do you have on a typical day when you are drinking? Patient does not drink 08/13/2024 4:01 PM EDT Sharmin Watson Q3: How often do you have six or more drinks on one occasion? Never 08/13/2024 4:01 PM EDT Sharmin Watsno documented as of this encounter Plan of Treatment Upcoming Encounters Date Type Department Care Team (Late st Contact Info) Description 11/03/2024 12:25 PM EDT Office Visit [facility] [address] [place] [address] 11/03/2024 12:30 PM EDT Hospital Encounter [facility] - Ultrasound [address] [place] [address] 12/14/2024 12:55 PM EDT Office Visit [facility] [address] [place] [address] 12/14/2024 1:00 PM EDT Appointment [facility] - Ultrasound [address] [place] [address] documented as of this encounter Procedures Procedure Name Priority Date/Time Associated Diagnosis Comments XR CHEST 2 VW STAT 01/15/2024 12:46 PM EST Chest congestion Other chest pain Fever, unspecified fever cause documented in this encounter Results * X-ray chest 2 views (01/15/2024 12:46 PM EST) Anatomical Region Laterality Modality Chest, Reading Worklist XR Chest Computed Radiography Narrative 01/15/2024 12:58 PM EST XR CHEST 2 VW IMPRESSION: No significant findings. END OF IMPRESSION: INDICATION: Fever, chest congestion. TECHNIQUE: Two projections of the chest were obtained. PA and lateral. COMPARISON: Chest x-ray 08/12/2023. FINDINGS: The heart size is normal. The vascular distribution is normal. The hilar and mediastinal silhouettes appear unremarkable. The lungs are clear. No pleural effusion is identified. There is no evidence of pneumothorax. There are no significant bony findings. This report was created using Voice Recognition software. Thank you for allowing us to participate in the care of your patient. Procedure Note Johnny Buitrago MD - 01/15/2024 XR CHEST 2 VW IMPRESSION: No significant findings. END OF IMPRESSION: INDICATION: Fever, chest congestion. TECHNIQUE: Two projections of the chest were obtained. PA and lateral. COMPARISON: Chest x-ray 08/12/2023. FINDINGS: The heart size is normal. The vascular distribution is normal. The hilarand mediastinal silhouettes appear unremarkable. The lungs are clear. Nopleural effusion is identified. There is no evidence of pneumothorax.There are no significant bony findings. This report was created using Voice Recognition software. Thank you forallowing us to participate in the care of your patient. us [facility] XR PROCEDURES Final Result documented in this encounter Visit Diagnoses Diagnosis Chest congestion Other symptoms involving respiratory system and chest Other chest pain Fever, unspecified fever cause documented in this encounter Additional Health Concerns Infection Onset Date Last Indicated Resolved Time Rule out COVID-19 and Respir atory Viruses 06/26/2024 06/26/2024 06/26/2024 9:13 PM E DT documented as of this encounter Care Teams Prototype Fabricator Relationship Specialty Start Date End Date Rodolfo Plunkett MD [address] [facility] [place] [id number] PCP - General Family Medicine 08/24/21 06/26/24 documented as of this encounter
--- NOTE | 2024-11-03 09:25 | ED_ITS ---
HPI - General Adult General Chief complaint: General Medical Stated complaint: Needs meds Time Seen by Provider: 11/03/24 09:26 Source: patient Mode of arrival: ambulatory Limitations: no limitations History of Present Illness ED Provider: Nannette Daniels PA-C HPI narrative: Patient is a 34 year old assigned female at with a history of current and opiate use on Suboxone presenting to the emergency department today requesting her suboxone dose. Patient states that she was seen here yesterday and transferred to [facility] where they monitored the baby for a bit and everything was OK. Patient states that she has been prescribed her suboxone but the pharmacy is out until tomorrow. Patient denies any complaints at this time. Related Data Previous Rx's ?Medication ?Instructions ?Recorded buprenorphine HCl 8 mg sublingual 8 mg sublingual GIORGIO Y #14 tabs 11/02/24 tablet Allergies Allergy/AdvReac Type Severity Reaction Status Date / Time bee pollen (bee stings) Allergy Unknown Verified 11/03/24 09:28 Penicillins (PCN) Allergy Unknown Verified 11/03/24 09:28 Review of Systems Constitutional: Constitutional: Reports as per HPI Eyes: Eyes: Reports as per HPI ENT: Reports as per HPI Cardiovascular: Cardiovascular: Reports as per HPI Respiratory: Respiratory: Reports as per HPI Gastrointestinal: Gastrointestinal: Reports as per HPI Genitourinary: Genitourinary: Reports as per HPI Musculoskeletal: Musculoskeletal: Reports as per HPI Integumentary/Breasts: Skin/Breast: Reports as per HPI Neurologic: Reports as per HPI Psychiatric: Psychiatric: Reports as per HPI Endocrine: Endocrine: Reports as per HPI Hematologic/Lymphatic: Hematologic/Lymphatic: Reports as per HPI Allergic/Immunologic: Allergic/Immunologic: Reports as per HPI [facility] Past Medical History Attestation statement: The following information was validated with the patient. Source: old records reviewed and nursing notes reviewed Social History Social History Advance Directives: No Advance Directives Information Provided: No Physical Exam ED Vital Signs: Vital Signs - 24 hr 11/03/24 09:26 11/03/24 09:38 Temperature 97.4 F 97.4 F Pulse Rate 88 88 Respiratory Rate 16 16 Blood Pressure 99/52 L 99/52 L Pulse Oximetry 99 99 Oxygen Delivery Method Room Air Room Air BMI result Body Mass Index 16.8 Const General: cooperative, no acute distress, alert and awake Nutritional Appearance: well nourished Orientation/consciousness: patient oriented x3 HENMT Head: Yes normal to inspection and Yes atraumatic Ears: hearing grossly normal bilaterally and external ears normal General nose exam: Normal external nose present, no nasal discharge noted and no epistaxis Face and sinus: Yes normal facial exam, No abrasion and No laceration Mouth: Normal oral and palatal mucosa present, no drooling and no muffled voice Eyes General: appearance normal, both eyes and all related structures Periorbital: periorbital findings normal Eyelids: Yes eyelids normal Conjunctivae: conjunctivae normal Pupils: Equal, round and reactive pupils present EOM: EOMs intact bilaterally Neck Neck: Yes normal visual inspection and Yes full ROM Resp Effort & Inspection: normal respiratory effort and able to speak in complete sentences Neuro General: patient oriented x3, moves all extremities and CN's II-XI intact bilaterally Cranial nerves: Yes Equal, round and reactive pupils present Cognition (Neuro): normal cognition Extrem General: Yes normal to inspection, Yes full ROM and Yes capillary refill normal Psych Appearance: grossly normal Mental Status: mental status grossly normal Affect: normal affect Attitude: cooperative Thought process: Normal thought process present Thought content: Normal thought content present Insight: Good insight present (Psych) Medications Administered Discontinued Medications Generic Name Dose Route Start Last Admin Trade Name Gunnar PRN Reason Stop Dose Admin Buprenorphine HCl 8 mg 11/03/24 09:26 11/03/24 09:36 Buprenorphine Hcl 8 Mg Tab.Subl SUBLINGUAL 11/03/24 09:27 8 mg ONCE ONE Administration Medical Decision Making Medical Decision Making [facility] Narrative: Patient is a 34 year old assigned female at with a history of current pr egnancy and opiate use on Suboxone presenting to the emergency department today requesting her suboxone dose. Patient's physical exam was unremarkable. I explained my physical exam findings to the patient. I answered all questions asked by the patient. Patient was provided her Suboxone dose. Patient assures me that she has worked out the issues with her pharmacy and will be getting her prescription tomorrow. Patient declined take home narcan. I stressed the importance of the patient taking her medication as directed (either prescribed or as the over the counter packaging recommends). I stressed the importance of the patient following up with her primary care provider. I stressed the importance of the patient returning to the emergency department immediately if her symptoms were to worsen or if she were to develop any dizziness, shortness of breath, difficulty breathing, chest pain, blurry vision, loss of vision, nausea, vomiting, abdominal pain, fever, chills, back pain, or any other complaints. Patient verbalized agreement and understanding with this treatment plan and discharge. Differential Diagnosis Differential Diagnoses: The differential diagnosis associated with the presentation includes Suboxone dose History of opiate use Admission/Observation Consideration of admission/observation: Escalation of care including admission/observation considered Patient would have been admitted to the hospital had her clinical presentation warranted hospital admission. Discharge Plan Discharge Clinical Impression: Opiate use Patient Disposition: Home, Self-Care Instructions: Opioid Use Disorder (ED) Additional Instructions: For help establishing with [employer] / Medicaid, please reach out to our financial counselors and certified application counselors: [address] [facility], [address] Email: [email or web address] IF you are prescribed home medications and/or you are taking over the counter medications at home - it is very important you continue to do so as prescribed / directed unless told otherwise. Follow up with a primary care provider. Return to the emergency department immediately if your symptoms worsen or if you develop any numbness, tingling, dizziness, shortness of breath, difficulty breathing, chest pain, blurry vision, loss of vision, nausea, vomiting, abdominal pain, fever, chills, back pain, or any other complaints. If you do not have a primary care provider - call any of the below numbers to establish and follow up with a primary care provider. [facility] Primary Care ([place]) [phone] [place] [address] [place], [address] [facility] Primary Care ([address] [place]) [phone] [address] [facility], [address] [place], [address] [facility] Primary Care ([address] [place]) [phone] [place] [address], [address] [place], [address] [facility] Primary Care ([address]) [phone] [place] [address], [address] [place], [address] [facility] Family Medicine [phone] [address] [facility], [address] Please see the information below about our Patient Portal. If you are not yet enrolled in the [facility] Patient Portal, you will receive an enrollment email invitation following your visit to any [facility] setting. You may also self-enroll in the Patient Portal by visiting our website: [email or web address] The following information is required to access the Patient Portal: - Your [facility] Medical Record Number - Your personal home email address (must match what is in your electronic medical record, Registration staff can assist with this) - Name - Date of Capabilities of the Patient Portal: - Message some providers - View upcoming appointments - Access your health summary, medical history, and visit history - View current conditions and allergies - View procedure and lab results - View your medications, including guidelines, side effects, and precautions - Complete pre-appointment questionnaires requested by your provider - Ready summary reports of your office visits and procedures To access the Patient Portal Mobile Shruthi, follow these directions: - Search [employer] in the Shruthi Store or Brandlive Store - Download the Shruthi - Search for [facility] - Enter your login/password Prescriptions: No Action buprenorphine HCl 8 mg tablet, sublingual 8 mg sublingual DAILY Qty: 14 0RF Interventions: ED Discharge Assessment Last Done: 11/03/24 09:38 Discharge Date/Time: 11/03/24 10:13 Print Language: Brazilian
[2024-11-03 09:26] VITALS: BP 99/52; PULSE 88; RESP 16; TEMP 36.3; O2SAT 99; BMI 16.8
[2024-11-03 09:38] VITALS: BP 99/52; PULSE 88; RESP 16; TEMP 36.3; O2SAT 99
--- OUTSIDE RECORDS SUMMARY | 2024-11-03 12:19 | XMS_ITS | Clinical Summary ---
Author Organization [facility] Address [address] [place] [address] Care Team Providers Care Head Of Talent Management Name Role Phone Unavailable Primary Care Provider [...] (NARCAN) 4 mg/actuation nasal spray Place 1 [place] into the nostril(s) as needed for opioid [...] Drug Screen 02/19/2024 Depression Annual Screen 02/19/2024 [id number] ( season) 2024 Imm-Influenza (#1) 2024 11/12/2015 [...] EDT) HIV 1 ANTIBODY NEGATIVE Negative [facility] MED BACK OFFICE INTERNAL CONTROL PASS PASS [facility] MED BACK OFFICE Blood Blood / Unknown 12/15/2023 1 1:09 AM EDT us Bradford [facility] - BLOOD DRAW Final Resul t [facility] MED BACK OFFICE [address] [address], from Last 3 Months or Most Recently Relevant to Health Maintenance Insurance [facility]
--- OUTSIDE RECORDS SUMMARY | 2024-11-03 12:19 | XMS_ITS | Encounter Summary ---
Author Organization [facility] Address [address] [place] [address] Care Team Providers Care Reconnaissance Crewmember Name Role Phone Unknown Primary Care Provider Unavailabl e Encounter Details Date Type Department Care Team (Late st Contact Info) Description 11/03/2024 Patient Outreach [facility] Care Management [address] [place] [address] Sharmin Watson [address] [place] [address] Encounter for supervision of other normal in second trimester ([facility]/H[facility]) (Primary Dx) Social History Tobacco Use Types [...] often do you attend chur ch or yazidi services? Never 09/24/2023 Do you belong to any clubs o r organizations such as jewish groups, unions, fraternal or athletic groups, or [...] things needed for daily living? Yes 2024 [place] Depression Scale Answer Date Recorded [place] Depression Scale Total 16 08/01/2023 The thought [...] any time in the past 12 m [facility], were you homeless or living in a [place] health [place] facility (including now)? Patient unable to answer 2024 [...] declined 08/13/2024 How often do you attend jewish or yazidi serv ices? Patient declined 08/13/2024 Do you belong to any clubs o r organizations such as jewish groups, unions, fraternal or athletic groups, or [...] housing, medical care, and heating? Hard 08/13/2024 [facility]at ional [facility] - Occupational Stress Questionnaire Answer Date [...] any time in the past 12 m [facility], were you homeless or living in a [place] health [place] facility (including now)? No 08/13/2024 [facility] Utilities Answer Date Recorded In the past 12 months has [facility] electric, gas, oil, or water company [...] Coordination Progress Note - Sharmin Watson - 11/03/2024 9:14 AM EDT Sw reviewed pt's chart today. Pt has requested her records to be transferred to [facility]. SW made one last attempt to reach pt to confirm, and was unable to leave VM. SW to closept's program on this day. documented in this encounter Plan of Treatment Upcoming Encounters Date Type Department Care Team (Late st Contact Info) Description 11/03/2024 12:25 PM EDT Office Visit [facility] [address] [place] [address] 11/03/2024 12:30 PM EDT Hospital Encounter [facility] - Ultrasound [address] [place] [address] 12/14/2024 12:55 PM EDT Office Visit [facility] [address] [place] [address] 12/14/2024 1:00 PM EDT Appointment [facility] - Ultrasound [address] [place] [address] documented as of this encounter Visit Diagnoses Diagnosis Encounter for supervision of other normal in second trimester ([facility])- Primary documented in this encounter Care Teams Reconnaissance Crewmember Relationship Specialty Start Date End Date Unknown PCP - General 07/29/24 documented as of this encounter
--- OUTSIDE RECORDS SUMMARY | 2024-11-03 12:19 | XMS_ITS ---
Author Organization [facility] Address [address] [place] [address] Care Team Providers Care Prison Classification Counselor Name Role Phone Unknown Primary Care Provider Unavailabl e Social Work Status:Closed (Closed) Start date:08/13/2024 Enrollment date:08/13/2024 Enrollment reason:Identified through N[employer]er [employer] Coordination referral End date:11/03/2024 Close reason:Case Transfer - External Related social drivers of health:Food Insecurity, Transportation Needs Overview Assists patients with obtaining needed community resources, services and equipment. Advocates for the patient's self determination and appropriate levels of care. Case Team Name Relationship Phone Sharmin Watson(Responsible Staff) Continued Care and Services Coordination
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
--- OUTSIDE RECORDS SUMMARY | 2024-11-03 12:19 | XMS_ITS | Clinical Summary ---
Author Organization [facility] Address [address] [place] [address] Care Team Providers Care Green Feed Attendant Name Role Phone No Pcp, Family Dr [...] GEN Nonreactive Nonreactive 07/16/2022 2:02 PM EDT [facility] Comment: HIV-1 antigen and HIV-1/HIV-2 antibodies [...] old. For additional information, please refer to http://education.SHERPANDIPITY/faq/TWK958 Blood Blood specimen / Unknown Line / Unknown 07/11/2022 11:29 PM EDT 07/11/2022 11:29 PM EDT Narrative [facility] - 07/16/2022 2:02 PM EDT Performing Organization Information: Site ID: [id number] Name: [employer] [place] Address: [address] [place], [place] Director: Antonio Tiwari MD PhD us Maris MCGHEE LAB BLOOD ORDERABLES F inal Result [employer] [place] [place] from Last 3 Months or Most Recently Relevant to Health Maintenance [place] [id number] [employer] Care Teams Green Feed Attendant Relationship Specialty Start Date End Date No Pcp, Family, [address] (Not a Real Address) [place] [address] PCP - General 09/28/21
--- OUTSIDE RECORDS SUMMARY | 2024-11-03 12:19 | XMS_ITS | Continuity of Care Document ---
Author Organization [facility] Address [address] [place] [address] Phone [phone] Care Team Providers Care Contracting Support Specialist Name Role Phone NIKKI EVANS D.O. Care Team Information Bartender Manager Unavailable No PCP, No Referring Primary Care Physician Unav ailable Problems Active Problems Provider Date Anemia Vikas Gordon M.D. Onset: 06/30/2019 Anxiety Vikas Gordon M.D. Onset: 06/30/2019 Asthma Vikas Gordon M.D. Onset: 06/30/2019 Depressive disorder Vikas Gordon M.D. 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 06/30/2019 Hydroxyzine [id number] Capsules Take 1 Capsule (25 MG Total) By Mouth 3 (Three) Times A Day Unknown [id number] Capsules Take 1 Capsule By Mouth Three Times A Day Unknown Functional Status Functional Condition Comment Date Status None Active
--- OUTSIDE RECORDS SUMMARY | 2024-11-03 12:19 | XMS_ITS | Encounter Summary ---
Author Organization [facility] Address [address] [place] [address] Care Team Providers Care Casting And Locker Room Servicer Name Role Phone Unknown Primary Care Provider Unavailabl e Encounter Details Date Type Department Care Team ([facility] Contact Info) Description 11/02/2024 Telephone [facility] - S. [facility] [address] [place] [address] Bette Witt DO [address] [phone] Social History Tobacco Use Types [...] How often do you attend chur or restorationist services? Never 09/24/2023 Do you belong to any clubs o r organizations such as latter-day groups, unions, fraternal or athletic groups, or [...] things needed for daily living? Yes 2024 [place] Depression Scale Answer Date Recorded [place] Depression Scale Total 16 08/01/2023 The thought [...] any time in the past 12 m [facility], were you homeless or living in [...] declined 08/13/2024 How often do you attend latter-day or restorationist serv ices? Patient declined 08/13/2024 Do you belong to any clubs o r organizations such as latter-day groups, unions, fraternal or athletic groups, or [...] housing, medical care, and heating? Hard 08/13/2024 [facility] ional Health - Occupational [...] in a correction (including now)? No 08/13/2024 [facility] Utilities Answer Date Recorded In the past 12 months has th e [employer], gas, oil, or water [employer] threatened to shut off services in your [...] 2:32 PM EDT Pc from Euf[facility] @ [facility]. Pt is currently in triage there ([facility]). They need all her current records faxed. They are faxing a signed medical release to our office now. documented in this encounter Plan of Treatment Upcoming Encounters Date Type Department Care Team (Late st Contact Info) Description 11/03/2024 12:25 PM EDT Office Visit [facility] Maternal- Medicine - Womens and Imaging Center [address] [place] [address] 11/03/2024 12:30 PM EDT Hospital Encounter [facility] Maternal- Medicine - Womens and Imaging Center - Ultrasound [address] [place] [address] 12/14/2024 12:55 PM EDT Office Visit [facility] Maternal- Medicine - Womens and Imaging Center [address] [place] [address] 12/14/2024 1:00 PM EDT Appointment [facility] Maternal- Medicine - Womens and Imaging Center - Ultrasound [address] [place] [address] documented as of this encounter Visit Diagnoses Not on filedocumented in this encounter Care Teams Casting And Locker Room Servicer Relationship Specialty Start Date End Date Unknown PCP - General 07/29/24 documented as of this encounter
--- OUTSIDE RECORDS SUMMARY | 2024-11-03 12:30 | XMS_ITS | Encounter Summary ---
Author Organization [facility] Address [address] [place] [address] Care Team Providers Care Principal Database Developer Name Role Phone Unknown Primary Care Provider Unavailabl e Reason for Visit * Radiology (Routine) - Authorized Specialty Diagnoses / Procedures Referred By Contac t Referred To Contact Diagnoses related condition in second trimester (HHS/HCC) Procedures Ultrasound, NST, Procedure Maternal Medicine Perla De León MD [address] [place], [place] [address] [address] Phone: tel: fax: Referral ID Status Reason Start Date Expiration Date V isits Requested Visits Authorized [id number] Authorized 09/15/2024 03/14/2026 3 3 Encounter Details Date Type Department Care Team (Late st Contact Info) Description 11/03/2024 12:30 PM EDT Hospital Encounter [facility] Maternal- Medicine - Womens and Imaging Center - Ultrasound [address] [place] [phone] Social History Tobacco Use Types Packs/Day Years [...] often do you attend chur ch or confucianist services? Never 09/24/2023 Do you belong to any clubs o r organizations such as buddhism groups, unions, fraternal or athletic groups, or [...] things needed for daily living? Yes 2024 [place] Depression Scale Answer Date Recorded [place] Depression Scale Total 16 08/01/2023 The thought [...] any time in the past 12 m [facility], were you homeless or living in a chcf (including now)? Patient unable to answer 2024 [...] declined 08/13/2024 How often do you attend buddhism or confucianist serv ices? Patient declined 08/13/2024 Do you belong to any clubs o r organizations such as buddhism groups, unions, fraternal or athletic groups, or [...] housing, medical care, and heating? Hard 08/13/2024 [facility] Occupat ional [facility] - Occupational Stress Questionnaire Answer Date [...] any time in the past 12 m [facility], were you homeless or living in a chcf (including now)? No 08/13/2024 [facility] Utilities Answer Date Recorded In the [...] on file documented as of this encounter Plan of Treatment Upcoming Encounters Date Type Department Care Team (Late st Contact Info) Description 11/03/2024 12:25 PM EDT Office Visit [facility] Maternal- Medicine - Womens and Imaging Center [address] [place] [address] 12/14/2024 12:55 PM EDT Office Visit [facility] [address] [place] [address] 12/14/2024 1:00 PM EDT Appointment [facility]- Medicine - Women and Imaging Center - Ultrasound [address] [place] [address] Scheduled Orders Name Type Priority Associated Diagnoses Orde r Schedule Ultrasound, NST, Procedure Maternal Medicine Imaging Routine related condition in second trimester ([facility]) Expected: 11/03/2024, Expires: 09/15/2025 documented as of this encounter Visit Diagnoses Not on filedocumented in this encounter Care Teams Principal Database Developer Relationship Specialty Start Date End Date Unknown PCP - General 07/29/24 documented as of this encounter
== END 2024-11-03 10:13 | disposition home or self-care (01) ==
PROVIDERS: Emergency Provider Emergency Medicine
DX: O99.320 Drug use complicating pregnancy, unspecified trimester (principal); F11.90 Opioid use, unspecified, uncomplicated; Z3A.00 Weeks of gestation of pregnancy not specified
CPT/HCPCS: 99282; 99283; J0571